=== PATIENT | male | born 1955 | race Hispanic/Latino ===

== ENCOUNTER 2016-09-21 16:42 | Observation (INO) | payer BC ==
--- NOTE | 2016-09-21 17:09 | ED PDOC ---
Arrival/HPI - General Chief Complaint: Chest Pain Time Seen by Provider: 09/21/16 16:43 - History of Present Illness Narrative History of Present Illness (Text): 09/21/16 17:07 61 yo male, hx of htn, cabg, cad, presents from home with cp. as per pt, started having cp at work, described as midsternal tightness. as per pt, went home, and "took a shower". pt noted pain to be worsening. ems arrived, found pt in svt, given adenosine, with resolution. at this time, pt cp and symptom free. no fevers, n/v/d, leg swelling, sob, diaphoresis. 09/21/16 17:14 Past Medical History - Provider Review Nursing Documentation Reviewed: Yes - Infectious Disease Hx of Infectious Diseases: None - Tetanus Immunization Tetanus Immunization: Unknown - Cardiac Hx Cardiac Disorders: (mi 2001 1 stent) Hx Angina: Yes Hx Hypertension: Yes Other/Comment: cardiac stent feb 2014, triple bypass 1995 - Pulmonary Hx Respiratory Disorders: No - Neurological Hx Transient Ischemic Attacks (TIA): Yes (December 2013) - HEENT Hx HEENT Disorder: Yes (deviated septum) - Renal Hx Renal Disorder: No - Endocrine/Metabolic Hx Endocrine Disorders: No - Hematological/Oncological Hx Blood Disorders: No - Integumentary Hx Dermatological Disorder: No - Musculoskeletal/Rheumatological Hx Falls: No - Gastrointestinal Hx Gastrointestinal Disorders: No - Genitourinary/Gynecological Hx Genitourinary Disorders: No - Psychiatric Hx Emotional Abuse: No Hx Physical Abuse: No Hx Substance Use: No - Surgical History Hx Cardiac Catheterization: Yes Hx Coronary Stent: Yes (February 2014 x1) Hx Open Heart Surgery: Yes - Anesthesia Hx Anesthesia Reactions: No Hx Malignant Hyperthermia: No - Suicidal Assessment Feels Threatened In Home Enviroment: No Family/Social History - Physician Review Nursing Documentation Reviewed: Yes Family/Social History: Unknown Family HX Smoking Status: Former Smoker Hx Alcohol Use: No Amount per day: 0 Hx Substance Use: No Hx Substance Use Treatment: No Allergies/Home Meds Allergies/Adverse Reactions: Allergies ciprofloxacin Allergy (Verified 09/21/16 16:45) RASH Home Medications: Home Meds Medication Instructions Recorded Confirmed Atorvastatin [Lipitor] 40 mg PO DAILY 12/31/11 09/21/16 Clopidogrel [Plavix] 75 mg PO DAILY 09/21/16 09/21/16 Lisinopril [Zestril] 0 mg PO DAILY 09/21/16 09/21/16 Metoprolol Tartrate [Lopressor] 0 mg PO DAILY 09/21/16 09/21/16 Review of Systems - Review of Systems Constitutional: Normal Eyes: Normal ENT: Normal Respiratory: Normal Cardiovascular: Chest Pain Gastrointestinal: Normal Genitourinary Male: Normal Musculoskeletal: Normal Skin: Normal Neurological: Normal Endocrine: Normal Hemo/Lymphatic: Normal Psychiatric: Normal Physical Exam Vital Signs Temp Pulse Resp BP Pulse Ox 09/21/16 20:30 58 L 18 153/94 H 95 09/21/16 18:35 62 18 149/89 97 09/21/16 16:43 98.6 F 88 18 144/82 96 Temperature: Afebrile Blood Pressure: Normal Pulse: Regular Respiratory Rate: Normal Appearance: Positive for: Well-Appearing, Non-Toxic, Comfortable Pain Distress: None Mental Status: Positive for: Alert and Oriented X 3 - Systems Exam Head: Present: Atraumatic, Normocephalic Pupils: Present: PERRL Extroacular Muscles: Present: EOMI Conjunctiva: Present: Normal Mouth: Present: Moist Mucous Membranes Neck: Present: Normal Range of Motion Respiratory/Chest: Present: Clear to Auscultation, Good Air Exchange. No: Respiratory Distress, Accessory Muscle Use Cardiovascular: Present: Regular Rate and Rhythm, Normal S1, S2. No: Murmurs Abdomen: Present: Normal Bowel Sounds. No: Tenderness, Distention, Peritoneal Signs Back: Present: Normal Inspection Upper Extremity: Present: Normal Inspection. No: Cyanosis, Edema Lower Extremity: Present: Normal Inspection. No: Edema Neurological: Present: GCS=15, CN II-XII Intact, Speech Normal Skin: Present: Warm, Dry, Normal Color. No: Rashes Psychiatric: Present: Alert, Oriented x 3, Normal Insight, Normal Concentration Medical Decision Making ED Course and Treatment: 09/21/16 17:14 cp/svt - r/o acs, metabolic abnormality. labs imaging, ekg - nsr 89 lateral t wave changes, no interval changes 09/21/16 18:30 pt remains pain free in er. remote h/o of neg stress 2014 as per pt, no repeat svt in er. discussed with dr orellana, accepts for obs. - Lab Interpretations Lab Results: 09/21/16 17:05 09/21/16 17:05 Lab Results 09/21/16 17:05: Sodium 140, Potassium 3.8, Chloride 108 H, Carbon Dioxide 21, Anion Gap 15, BUN 24 H, Creatinine 0.9, Est GFR ( Amer) > 60, Est GFR ( Non-Af Amer) > 60, Random Glucose 142 H, Calcium 9.6, Magnesium 2.0, Total Bilirubin 0.6, AST 86 H, ALT 83 H, Alkaline Phosphatase 82, Lactate Dehydrogenase 503, Total Creatine Kinase 133, Troponin I 0.03 D, Total Protein 7.4, Albumin 3.9, Globulin 3.5, Albumin/Globulin Ratio 1.1 09/21/16 17:05: PT 11.2, INR 1.04, APTT 27.5 09/21/16 17:05: WBC 9.9 D, RBC 4.35, Hgb 14.0, Hct 40.6 L, MCV 93.3, MCH 32.2, MCHC 34.5, RDW 13.7, Plt Count 257, MPV 10.0, Gran % 78.5 H, Lymph % (Auto) 16.3 L, [place] % (Auto) 4.8, Eos % (Auto) 0.1 L, Baso % (Auto) 0.3, Gran # 7.80 H , Lymph # 1.6, [place] # 0.5, Eos # 0.0, Baso # 0.03 - RAD Interpretation Radiology Orders: 09/21/16 17:06 CHEST PORTABLE [RAD] Stat - Medication Orders Current Medication Orders: Discontinued Medications Aspirin (Aspirin) 325 mg PO STAT STA Stop: 09/21/16 17:10 Last Admin: 09/21/16 17:21 Dose: 325 mg Atorvastatin Calcium (Lipitor) 40 mg PO [facility] Last Admin: 09/22/16 21:58 Dose: 40 mg Clopidogrel Bisulfate (Plavix) 75 mg PO DAILY [facility] Last Admin: 09/23/16 09:50 Dose: 75 mg Diphenhydramine HCl (Benadryl) 25 mg PO ONCE ONE Stop: 09/21/16 23:19 Last Admin: 09/21/16 23:26 Dose: 25 mg Lisinopril (Zestril) 10 mg PO BID [facility] Last Admin: 09/23/16 09:49 Dose: 10 mg Lisinopril (Zestril) 10 mg PO STAT STA Stop: 09/21/16 22:47 Last Admin: 09/21/16 22:50 Dose: 10 mg Metoprolol Tartrate (Lopressor) 12.5 mg PO BRKDIN [facility] Last Admin: 09/23/16 08:19 Dose: Not Given Non-Admin Reason: BP Parameters Not Met Disposition/Present on Arrival - Present on Arrival Any Indicators Present on Arrival: No History of DVT/PE: No History of Uncontrolled Diabetes: No Urinary Catheter: No History of Decub. Ulcer: No History Surgical Site Infection Following: None - Disposition Have Diagnosis and Disposition been Completed?: Yes Diagnosis: Chest pain, SVT (supraventricular tachycardia) Disposition: HOSPITALIZED Disposition Time: 07:00 Condition: FAIR
[2016-09-21 17:10] LABS: ADD MANUAL DIFF? NO
[2016-09-21 17:19] LABS: BASO # 0.03 K/mm3 (0.0-2.0); BASO % 0.3 % (0.0-3.0); EOS % 0.1 % (1.5-5.0); GRAN % 78.5 % (50.0-68.0); HEMATOCRIT 40.6 % (42.0-52.0); LYMPH # 1.6 (1.2-3.4); LYMPH % 16.3 % (22.0-35.0); MEAN CELL VOLUME 93.3 fL (80.0-105.0); MEAN CORPUSCULAR HEMOGLOBIN 32.2 pg (25.0-35.0); MEAN CORPUSCULAR HGB CONC 34.5 g/dl (31.0-37.0); MONO # 0.5 (0.1-0.6); MONO % 4.8 % (1.0-6.0); PLATELET COUNT 257 10^3/uL (120.0-450.0); RED CELL DISTRIBUTION WIDTH 13.7 % (11.5-14.5); WHITE BLOOD COUNT 9.9 10^3/ul (4.5-11.0)
[2016-09-21 17:26] LABS: ALB/GLOB RATIO 1.1 (1.1-1.8); ALKALINE PHOSPHATASE 82 U/L (38-133); ALT/SGPT 83 U/L (7-56); AST/SGOT 86 U/L (15-59); BILIRUBIN,TOTAL 0.6 mg/dL (0.2-1.3); BLOOD UREA NITROGEN 24 mg/dL (7-21); CALCIUM 9.6 mg/dL (8.4-10.5); CARBON DIOXIDE 21 mmol/L (21-33); CHLORIDE 108 mmol/L (98-107); GFR AFRICAN-AMERICAN > 60; GLUCOSE,RANDOM 142 mg/dL (70-110); INR 1.04 (0.93-1.08); PARTIAL THROMBOPLASTIN TIME 27.5 Seconds (23.7-30.8); POTASSIUM 3.8 mmol/L (3.6-5.0); SODIUM 140 mmol/L (132-148); TOTAL PROTEIN 7.4 g/dL (5.8-8.3)
[2016-09-21 17:37] LABS: TROPONIN I 0.03 ng/mL
[2016-09-22 03:01] VITALS: BMI 86700.6
[2016-09-22 04:18] VITALS: O2SAT 98
--- NOTE | 2016-09-22 06:30 | CP.PCM.PN ---
Subjective - Date & Time of Evaluation Date of Evaluation: 09/22/16 Time of Evaluation: 04:00 - Subjective Subjective: called by nurse pt. has sinus bradycardia,at the rate of 40. pt is admitted with cp and has receieved metoprolol 50 mg at 7:30 pm. pt denies complaints.is sleeping comfortably . Objective - Vital Signs/Intake and Output Vital Signs (last 24 hours): Temp Pulse Resp BP Pulse Ox 97.7 F 48 L 19 106/56 L 98 09/22/16 05:49 09/22/16 05:49 09/22/16 05:49 09/22/16 05:49 09/22/16 00:00 Intake and Output: 09/21/16 09/22/16 18:59 06:59 Intake Total 0 Output Total 0 Balance 0 - Medications Medications: Current Medications Atorvastatin Calcium (Lipitor) 40 mg PO HS [facility] Last Admin: 09/21/16 22:50 Dose: 40 mg Clopidogrel Bisulfate (Plavix) 75 mg PO DAILY [facility] Lisinopril (Zestril) 10 mg PO BID [facility] Metoprolol Tartrate (Lopressor) 50 mg PO BRKDIN AIXA - Labs Labs: PT 11.2 Seconds (9.9-11.8) 09/21/16 17:05 INR 1.04 (0.93-1.08) 09/21/16 17:05 APTT 27.5 Seconds (23.7-30.8) 09/21/16 17:05 - Constitutional Appears: No Acute Distress - Head Exam Head Exam: NORMOCEPHALIC - Eye Exam Pupil Exam: PERRL - ENT Exam ENT Exam: Mucous Membranes Moist - Neck Exam Neck Exam: Full ROM - Respiratory Exam Respiratory Exam: Clear to Ausculation Bilateral - Cardiovascular Exam Cardiovascular Exam: RRR, +S1, +S2 - Rectal Exam Rectal Exam: Deferred - Extremities Exam Extremities Exam: Full ROM - Neurological Exam Neurological Exam: CN II-XII Intact, Oriented x3 - Psychiatric Exam Psychiatric exam: Normal Affect Assessment and Plan - Assessment and Plan (Free Text) Assessment: sinus bradycardia./medication effect. Plan: will hold am dose of metoprolol. will call dr zamarripa ? decreasing the dose of metoprolol. pt has secnd set of troponone pending.
--- NOTE | 2016-09-22 11:01 | HP ---
CHIEF COMPLAINT AND HISTORY OF PRESENT ILLNESS: This is a 61-year-old male who is coming into the [facility] with complaints of chest pain. The patient says that he was having chest pain at home. He sa ys he went to work, was having chest pain. It was midsternal. He felt that it was getting worse, so the patient wanted to go to his job service consultant, Dr. Grey. EMS was called to take the patient to the ER. On arrival, the patient was in SVT and adenosine was given and the patient had improvement of h is rapid heartbeat. He said he did not feel the rapid heartbeat. He has no complaints of any headac hes or dizziness this morning. No chest pain, no shortness of breath, no nausea, no vomiting, no dys uria or frequency, no nocturia. REVIEW OF SYSTEMS: All other review of systems are within normal limits except as mentioned. PAST MEDICAL HISTORY: TIA, BPH, dyslipidemia, coronary artery disease, hypertension. PAST SURGICAL HISTORY: CABG. SOCIAL HISTORY: He does not smoke or drink. 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 He has no children. 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 FAMILY HISTORY: Noncontributory. PHYSICAL EXAMINATION: VITAL SIGNS: Temperature is 97.7, pulse of 48, blood pressure is 106/56, respirations are 19, O2 sa turation 98%. GENERAL: Patient lying in bed, flat, and in no apparent distress. HEAD AND NECK EXAM: Atraumatic, normocephalic. Conjunctivae are pink. Throat clear and mouth with moist mucosa. Oropharynx benign. EYES: Extraocular movements are intact. PERRLA. NECK: Supple. No JVD, thyromegaly, or adenopathy. No bruits. HEART: S1 and S2 regular rate and rhythm. No murmurs, rubs, or gallops. LUNGS: Clear to auscultation bilaterally. No wheezing rales or rhonchi appreciated. No retraction s on exam. ABDOMEN: Soft, nontender, nondistended. Bowel sounds are positive in all quadrants. No rebound. No hepatosplenomegaly. EXTREMITIES: No cyanosis, clubbing, or edema. NEURO: No facial asymmetry, tongue is midline, no uvula deviation. Power is 5/5 in upper extremity and 5/5 in lower extremity. Sensation is normal in upper extremity and lower extremity. PSYCH: Awake, alert, oriented x3. No anxiety or depression symptoms. Good insight. Normal affec t. : No CVA tenderness VASCULAR: 2+ pulses in carotid and pedal pulses. SKIN: No erythema or abnormal nodules noted. SPINE: Normal curvature. LYMPHADENOPATHY: No anterior cervical or posterior cervical adenopathy. No inguinal adenopathy. LABORATORY DATA: Have been reviewed. White count of 9.6. He has a chemistry that shows a creatinin e of 0.9. Chest x-ray shows no infiltrates. ASSESSMENT: 1. Supraventricular tachycardia. 2. Coronary artery disease. 3. Coronary artery bypass graft. 4. Benign prostatic hypertrophy. 5. Dyslipidemia. 6. Benign prostatic hypertrophy. 7. Hypertension. 8. Bradycardia, asymptomatic. PLAN: The patient is currently comfortable. The patient is on Lipitor for dyslipidemia. He is mercedes g to continue his Plavix. He is on Zestril for his hypertension. The patient is on beta blockers. Will discontinue for now because of the patient's bradycardia. I have asked Dr. Grey to evaluate e patient. The patient has a troponin that has been ordered and is pending. Davidson Morrison MD cc: [id number] TT: 09/22/2016 11:00:40 derek
--- NOTE | 2016-09-22 14:03 | CARD ---
APPROVED REPORT EKG Measurement Heart [id number] SD [id number] [id number] <Conclusion> Normal sinus rhythm ST & T wave abnormality, consider lateral ischemia Abnormal ECG
--- NOTE | 2016-09-22 15:24 | CON ---
DATE: 09/22/2016 REQUESTING PHYSICIAN: Dr. Morrison. REASON FOR CONSULTATION: Tachycardia, chest pain. HISTORY OF PRESENT ILLNESS: This is a 61-year-old man well known to us with a history of coronary ar melanie disease, status post prior bypass surgery, who presented to the office yesterday with complaints of dyspnea and chest pain. He was noted be tachycardic and ambulance was called. Upon arrival in E mergency Room, he was in SVT with heart rate of over 160. He was treated with adenosine and subseque ntly converted to sinus rhythm. He had some chest pain prior to presenting. He states that he has b een fairly active recently with no exertional chest pain or excessive dyspnea. He claims compliance with his medications. He has had no prior episodes of SVT. PAST MEDICAL HISTORY: Notable for the problems mentioned above. He underwent coronary bypass surger y several years ago. He has a history of hypertension, hyperlipidemia. He also had a TIA several ye ars ago. He has a history of BPH as well. ALLERGIES: HE HAS HAD A REACTION TO CIPROFLOXACIN IN THE PAST. MEDICATIONS: At home included Lipitor 40 mg daily, metoprolol 12.5 mg b.i.d., Plavix 75 mg daily as well as Zestril 5 mg daily. SOCIAL HISTORY: He does not smoke. He drinks occasionally. He denies excessive alcohol use recentl y. 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 REVIEW OF SYSTEMS: Ten point review of systems is otherwise unremarkable. PHYSICAL EXAMINATION: GENERAL: He is a healthy appearing middle-aged man. VITAL SIGNS: His blood pressure is 134/80 with a pulse of 60 and sinus, respirations are 14, he is a febrile. HEENT: Normocephalic, atraumatic. NECK: Supple, no JVD noted. CHEST: Few scattered rhonchi heard. HEART: PMI in normal position. A systolic murmur is present in left sternal border. ABDOMEN: Soft, nontender, normoactive bowel sounds. EXTREMITIES: No clubbing, cyanosis or edema. SKIN: Warm and dry. PSYCHIATRIC: Normal mood and affect. NEUROLOGIC: Alert and oriented x 3. No gross motor or sensory deficits appreciable. DIAGNOSTIC DATA: Initial electrocardiogram strips were unavailable for review. Follow up electrocar diogram reveals sinus rhythm, nonspecific ST-T abnormalities. Chest x-ray reveals borderline cardiac silhouette enlargement with clear lung ac and post-sternotomy changes. White count is 9.9, hemo globin and hematocrit of 14 and 40.6 with a platelet count of 256,000. PT, PTT were normal. Potassi um 3.8, BUN and creatinine are 24 and 0.9. AST, ALT 86 and 83 respectively. Initial troponin was 0. 03, repeat is 0.13. IMPRESSION: 1. Paroxysmal supraventricular tachycardia successfully converted with adenosine in the Emergency Ro om. 2. Elevated troponin, possibly secondary to tachycardia; however, given coronary disease and recent chest pain further evaluation is warranted. 3. Coronary artery disease, status post prior bypass surgery. 4. Mildly elevated transaminases, etiology uncertain. 5. Rest of problems as noted. RECOMMENDATIONS: Continued telemetry observation for 24 hours is advised. Despite his resting deena cardia, low dose beta heydi therapy should continue. Follow up cardiac enzymes are planned. Old r ecords were reviewed. A repeat stress test may be necessary in the near future. If he has no recurr ent SVT or other issues, discharge home in 24 hours would be reasonable. Thank you for this consultation. I am happy to continue to follow him through his hospital course. Babak Flowers MD cc: [id number] TT: 09/22/2016 15:23:16 Confirmation # [id number] Dictation # [id number] lisa
--- NOTE | 2016-09-22 15:45 | RAD ---
HISTORY: cp COMPARISON: Comparison chest 01/10/2015 study slightly limited due to patient rotation FINDINGS: LUNGS: Suspect minor bibasilar atelectasis. PLEURA: No significant pleural effusion identified, no pneumothorax apparent. CARDIOVASCULAR: Sternotomy wires again noted. Heart size is borderline/ mildly enlarged. OSSEOUS STRUCTURES: No significant abnormalities. VISUALIZED UPPER ABDOMEN: Normal. OTHER FINDINGS: None. IMPRESSION: Slightly limited study. Mild bibasilar atelectasis.
--- NOTE | 2016-09-23 08:41 | PN ---
DATE: 09/23/2016 SUBJECTIVE: The patient is seen lying in bed on telemetry. He feels comfortable at the present time. He has had no recurrent tachycardia. He denies any recurrent chest pain. CURRENT MEDICATIONS: Include Lipitor 40 mg daily, metoprolol 12.5 mg b.i.d., Plavix 75 mg daily, and Zestril 10 mg b.i.d. OBJECTIVE: GENERAL: He is a middle-aged man who appears comfortable at rest. VITAL SIGNS: Blood pressure is 100/56 with a pulse of 50 in sinus. Respirations are 16. He is afebrile. HEENT: No JVD. CHEST: A few scattered rhonchi. HEART: PMI in normal position. No pathologic murmurs or gallops noted. ABDOMEN: Soft, nontender, normoactive bowel sounds. EXTREMITIES: No edema. DIAGNOSTIC DATA: Morning blood work pending. Peak troponin was 0.13. IMPRESSION: 1. Recent paroxysmal supraventricular tachycardia successfully terminated with adenosine use in the Emergency Room. 2. Coronary artery disease, status post remote bypass surgery and percutaneous coronary intervention. 3. Recent chest pain, possibly due to supraventricular tachycardia. 4. Borderline troponin elevation, likely due to supraventricular tachycardia, but given known coronary artery disease, followup stress test would be advised if not performed recently. RECOMMENDATIONS: From a cardiac standpoint, he appears stable for discharge home today. Low-dose beta-heydi therapy will be continued with Toprol XL 25 mg daily. Outpatient followup early next week will be planned. Continued risk factor control was advised. Maneuvers to attempt termination of SVT were discussed with him. If he has recurrent episodes, he was instructed to return to the Emergency Room. Ablation therapy might be necessary, as he is limited in terms of drug therapy due to his relative bradycardia and transient low blood pressure readings. Continued risk-factor control was advised. Outpatient followup was arranged. Babak Flowers MD cc: [id number] TT: 09/23/2016 08:40:20 Confirmation # [id number] Dictation # [id number] jn JUDI
[2016-09-23 13:02] VITALS: BP 154/89; PULSE 47; RESP 18; TEMP 98.2
--- NOTE | 2016-09-23 20:10 | DS ---
The patient has no complaints of any chest pain or shortness of breath. No headaches or dizziness. He was initially admitted to the hospital because he was having SVT. The patient was seen by Dr. Mee bates and was cleared to be discharged home. He does have a history of coronary artery disease and C ABG. The patient had 3 troponins, the second one being elevated at 0.13 and one this morning is 0.[address] Flowers is aware and the patient is going to be discharged home to follow up as an outpatient . PHYSICAL EXAMINATION: VITAL SIGNS: Temperature is 98.2, pulse of 47, blood pressure is 154/89, respiration is 18. GENERAL: The patient comfortable, in no acute distress. HEENT: Anicteric sclerae. Moist mucosa. NECK: No JVD or adenopathy. CARDIAC: S1/S2. No murmurs. No rubs. Regular. RESPIRATORY: Clear to auscultation bilaterally. No wheezes, rales, or rhonchi. Good air entry. ABDOMEN: Bowel sounds are positive, soft, nontender, and nondistended. EXTREMITIES: No edema. Has 1+ pulses. ASSESSMENT: 1. Supraventricular tachycardia, resolved. 2. Coronary artery disease. 3. Coronary artery bypass graft. 4. Benign prostatic hypertrophy. 5. Dyslipidemia. 6. Hypertension. 7. Bradycardia, asymptomatic. PLAN: The patient was advised to take 12.5 mg of metoprolol at home. The patient is on Lipitor for dyslipidemia. This will be continued. He is receiving Zestril for his hypertension. He is going to be discharged home to follow up as an outpatient. CONDITION: Stable. ACTIVITIES: Increase as tolerated. Davidson Morrison MD cc: [id number] TT: 09/23/2016 20:09:35 sn
== END 2016-09-23 14:43 | disposition home or self-care (01) ==
LOC: ED 16:42 → ERH 18:29 → 2RNO 21:46
PROVIDERS: ADMIT Internal Medicine Nephrology; ATTEND Internal Medicine Nephrology
DX: I47.1 Supraventricular tachycardia (principal); I25.10 Atherosclerotic heart disease of native coronary artery without angina pectoris; N40.0 Benign prostatic hyperplasia without lower urinary tract symptoms; E78.5 Hyperlipidemia, unspecified; I10 Essential (primary) hypertension; R00.1 Bradycardia, unspecified; R74.0 Nonspecific elevation of levels of transaminase and lactic acid dehydrogenase [LDH]; Z95.1 Presence of aortocoronary bypass graft; Z86.73 Personal history of transient ischemic attack (TIA), and cerebral infarction without residual deficits
CPT/HCPCS: 36415; 71010; 80053; 82550; 82948; 83615; 83735; 84484; 85025; 85610; 85730; 93005; 99285; G0378

== ENCOUNTER 2016-10-07 13:07 | Inpatient (IN) | payer BC ==
[2016-10-07 13:23] VITALS: BMI 31.4
--- NOTE | 2016-10-07 13:26 | ED PDOC ---
Arrival/HPI - General Chief Complaint: Chest Pain Time Seen by Provider: 10/07/16 13:11 Historian: Patient - Critical Care Critical Care Minutes: 45 minutes Narrative Critical Care (Text): Required my immediate attention due to acuity of condition, required bedside presence for constant monitoring, drug administration, and consultations. - History of Present Illness Narrative History of Present Illness (Text): 10/07/16 13:23 61 year old male whose past medical history includes MO with stents, CABG, CAD, and hypertension, presents to the emergency department with chest pain, palpitations, and shortness of breath 20 minutes prior to arrival after having an argument with his landlord this morning. Patient states he feels woozy. He reports he was seen in the ER recently with similar symptoms. He states he had a stress test with Dr. Grey five days ago. Patient reports he had one drink earlier today and then just prior to the episode, had an altercation with his landlord. PMD: Dr. Jason Time/Duration: Prior to Arrival Symptom Onset: Sudden Symptom Course: Unchanged Modifying Factors (Text): None Past Medical History - Provider Review Nursing Documentation Reviewed: Yes - Infectious Disease Hx of Infectious Diseases: None - Tetanus Immunization Tetanus Immunization: Unknown - Cardiac Hx Cardiac Disorders: (mi 2001 1 stent) Hx Angina: Yes Hx Hypertension: Yes Other/Comment: cardiac stent feb 2014, triple bypass 1995 - Pulmonary Hx Respiratory Disorders: No - Neurological Hx Transient Ischemic Attacks (TIA): Yes (December 2013) - HEENT Hx HEENT Disorder: Yes (deviated septum) - Renal Hx Renal Disorder: No - Endocrine/Metabolic Hx Endocrine Disorders: No - Hematological/Oncological Hx Blood Disorders: No - Integumentary Hx Dermatological Disorder: No - Musculoskeletal/Rheumatological Hx Falls: No - Gastrointestinal Hx Gastrointestinal Disorders: No - Genitourinary/Gynecological Hx Genitourinary Disorders: No - Psychiatric Hx Emotional Abuse: No Hx Physical Abuse: No Hx Substance Use: No - Surgical History Hx Cardiac Catheterization: Yes Hx Coronary Stent: Yes (February 2014 x1) Hx Open Heart Surgery: Yes - Anesthesia Hx Anesthesia Reactions: No Hx Malignant Hyperthermia: No - Suicidal Assessment Feels Threatened In Home Enviroment: No Family/Social History - Physician Review Nursing Documentation Reviewed: Yes Family/Social History: Unknown Family HX Smoking Status: Former Smoker Hx Alcohol Use: No Amount per day: 0 Hx Substance Use: No Hx Substance Use Treatment: No Allergies/Home Meds Allergies/Adverse Reactions: Allergies ciprofloxacin Allergy (Verified 09/21/16 16:45) RASH Home Medications: Home Meds Medication Instructions Recorded Confirmed Atorvastatin [Lipitor] 40 mg PO DAILY 12/31/11 10/07/16 Clopidogrel [Plavix] 75 mg PO DAILY 09/21/16 10/07/16 Lisinopril [Zestril] 0 mg PO DAILY 09/21/16 10/07/16 Metoprolol Tartrate [Lopressor] 0 mg PO DAILY 09/21/16 10/07/16 Review of Systems - Physician Review All systems were reviewed & negative as marked: Yes - Review of Systems Eyes: absent: Vision Changes Respiratory: SOB Cardiovascular: Chest Pain, Palpitations Gastrointestinal: absent: Vomiting Physical Exam - Physical Exam Narrative Physical Exam (Text): Constitutional: No acute distress. Head: Normocephalic. Atraumatic. Eyes: PERRL. ENT: Moist mucous membranes. Neck: Supple. Cardiovascular: Tachycardic. Chest: No tenderness. Respiratory: Clear to auscultation bilaterally. GI: Soft. Nontender. Nondistended. Back: No CVA tenderness. Musculoskeletal: No tenderness or swelling of extremities. Skin: No rash. Neurologic: Alert, no focal deficit. 10/07/16 13:26 Vital Signs Reviewed: Yes Vital Signs Temp Pulse Resp BP Pulse Ox 10/07/16 14:12 70 18 122/76 96 10/07/16 14:10 103 H 18 166/83 H 97 10/07/16 13:12 98.2 F 175 H 18 156/117 H 97 Temperature: Afebrile Blood Pressure: Hypertensive Pulse: Tachycardic Respiratory Rate: Normal Appearance: Positive for: Well-Appearing, Non-Toxic, Uncomfortable Pain Distress: None Mental Status: Positive for: Alert and Oriented X 3 Medical Decision Making ED Course and Treatment: Impression: 61 year old male whose past medical history includes MO with stents , CABG, CAD, and hypertension, presents to the emergency department with chest pain, palpitations, and shortness of breath 20 minutes prior to arrival after having an argument with his landlord this morning. Differential Diagnosis include but are not limited to: SVT Plan: -- Adenosine, Aspirin -- Labs -- Reassess and disposition Prior Visits: Notes and results from previous visits were reviewed. Patient last seen in ED on 09/21/16 for chest pain and admitted for SVT, chest pain. Progress Notes: EKG at 13:11 shows rate 175 BPM, nonspecific ST/T wave changes, narrow QRS. Interpreted by me. Adenosine 6mg administered with no effect, then 12 mg administered with successful conversion to NSR. EKG at 13:24 shows sinus rhythm 103 BPM, no ST elevations, normal axis. Interpreted by me. 10/07/16 13:38 Chest X-ray read by me shows no acute infiltrate, no change from previous. Positive sternotomy wires Dr. Walker accepts patient to her service. Dr. Grey consulted, states he will discuss need for cath with patient. - Lab Interpretations Lab Results: 10/07/16 12:10 10/07/16 12:10 Lab Results 10/07/16 12:10: Sodium 139, Potassium 4.4, Chloride 105, Carbon Dioxide 20 L, Anion Gap 18, BUN 24 H, Creatinine 0.9, Est GFR ( Amer) > 60, Est GFR ( Non-Af Amer) > 60, Random Glucose 182 H, Calcium 9.1, Total Bilirubin 0.6, AST 45, ALT 69 H, Alkaline Phosphatase 78, Total Creatine Kinase 63, Troponin I < 0.01 D, Total Protein 8.1, Albumin 4.3, Globulin 3.7, Albumin/Globulin Ratio 1.2 10/07/16 12:10: WBC 11.5 H, RBC 4.81, Hgb 15.4, Hct 44.8, MCV 93.1, MCH 32.0, MCHC 34.4, RDW 13.7, Plt Count 270, MPV 10.3, Gran % 67.7, Lymph % (Auto) 23.6, [place] % (Auto) 7.9 H, Eos % (Auto) 0.5 L, Baso % (Auto) 0.3, Gran # 7.81 H, Lymph # 2.7, [place] # 0.9 H, Eos # 0.1, Baso # 0.04 - RAD Interpretation Radiology Orders: 10/07/16 13:25 CHEST PORTABLE [RAD] Stat - EKG Interpretation Interpreted by ED Physician: Yes Type: 12 lead EKG - Medication Orders Current Medication Orders: Discontinued Medications Adenosine (Adenosine 6 Mg/2 Ml Inj) Confirm Administered Dose 6 mg .ROUTE .[employer] ONE Stop: 10/07/16 13:15 Last Admin: 10/07/16 13:50 Dose: Adenosine (Adenosine 6 Mg/2 Ml Inj) 6 mg IVP STAT STA Stop: 10/07/16 13:30 Last Admin: 10/07/16 13:14 Dose: 6 mg Adenosine (Adenosine 6 Mg/2 Ml Inj) 12 mg IVP STAT STA Stop: 10/07/16 13:30 Last Admin: 10/07/16 13:20 Dose: 12 mg Aspirin (Aspirin) 325 mg PO STAT STA Stop: 10/07/16 13:27 Last Admin: 10/07/16 13:47 Dose: 325 mg - Scribe Statement The provider has reviewed the documentation as recorded by the Temi Fontenot Provider Scribe Attestation: All medical record entries made by the Paddyibe were at my direction and personally dictated by me. I have reviewed the chart and agree that the record accurately reflects my personal performance of the history, physical exam, medical decision making, and the department course for this patient. I have also personally directed, reviewed, and agree with the discharge instructions and disposition. Disposition/Present on Arrival - Present on Arrival Any Indicators Present on Arrival: No History of DVT/PE: No History of Uncontrolled Diabetes: No Urinary Catheter: No History of Decub. Ulcer: No History Surgical Site Infection Following: None - Disposition Have Diagnosis and Disposition been Completed?: Yes Diagnosis: SVT (supraventricular tachycardia) Disposition: HOSPITALIZED Disposition Time: 14:06 Patient Plan: Telemetry Condition: GUARDED
[2016-10-07 13:31] LABS: ADD MANUAL DIFF? NO
[2016-10-07 13:38] LABS: BASO # 0.04 K/mm3 (0.0-2.0); BASO % 0.3 % (0.0-3.0); EOS # 0.1 (0.0-0.7); EOS % 0.5 % (1.5-5.0); GRAN # 7.81 (1.4-6.5); GRAN % 67.7 % (50.0-68.0); HEMATOCRIT 44.8 % (42.0-52.0); LYMPH # 2.7 (1.2-3.4); LYMPH % 23.6 % (22.0-35.0); MEAN CELL VOLUME 93.1 fL (80.0-105.0); MEAN CORPUSCULAR HGB CONC 34.4 g/dl (31.0-37.0); MEAN PLATELET VOLUME 10.3 fl (7.0-11.0); MONO # 0.9 (0.1-0.6); MONO % 7.9 % (1.0-6.0); PLATELET COUNT 270 10^3/uL (120.0-450.0); RED CELL DISTRIBUTION WIDTH 13.7 % (11.5-14.5); WHITE BLOOD COUNT 11.5 10^3/ul (4.5-11.0)
[2016-10-07 13:43] LABS: ALB/GLOB RATIO 1.2 (1.1-1.8); ALKALINE PHOSPHATASE 78 U/L (38-133); ALT/SGPT 69 U/L (7-56); AST/SGOT 45 U/L (15-59); BILIRUBIN,TOTAL 0.6 mg/dL (0.2-1.3); BLOOD UREA NITROGEN 24 mg/dL (7-21); CALCIUM 9.1 mg/dL (8.4-10.5); CARBON DIOXIDE 20 mmol/L (21-33); CHLORIDE 105 mmol/L (98-107); GFR AFRICAN-AMERICAN > 60; GLUCOSE,RANDOM 182 mg/dL (70-110); POTASSIUM 4.4 mmol/L (3.6-5.0); SODIUM 139 mmol/L (132-148); TOTAL PROTEIN 8.1 g/dL (5.8-8.3)
[2016-10-07 13:59] LABS: TROPONIN I < 0.01 ng/mL
--- NOTE | 2016-10-07 13:59 | RAD ---
HISTORY: svt COMPARISON: 01/10/2015 FINDINGS: LUNGS: No focal airspace opacity. PLEURA: No significant pleural effusion identified, no pneumothorax apparent. CARDIOVASCULAR: Stable cardiomediastinal silhouette. OSSEOUS STRUCTURES: The osseous structures demonstrate degenerative changes. VISUALIZED UPPER ABDOMEN: Upper abdomen is suboptimally evaluated. OTHER FINDINGS: Midline sternotomy wires and surgical clips along the left heart border noted. IMPRESSION: No focal airspace opacity.
--- NOTE | 2016-10-07 22:21 | CP.PCM.PN ---
Subjective - Date & Time of Evaluation Date of Evaluation: 10/07/16 Time of Evaluation: 22:21 - Subjective Subjective: Patient was examined because his troponin had bumped to 0.16 from 0.01 at 12PM. Earlier , patient has SVT, after receiving 18 mg of adenosine it was controlled. As per case monitor , since about 7 pm heart rate has been in 40's 50's. Patient has no complaints now. Denies chest pain, sob, nausea, sweating , palpitations. Medical record was reviewed. This 61 year old white male was admitted with chest pain, sob and palpitations/ SVT. Has PMH of HTN, dyslipidemia, CAD,CABG, SVT, BPH ,asymptomatic bradycardia, former smoker. Objective - Vital Signs/Intake and Output Vital Signs (last 24 hours): Temp Pulse Resp BP Pulse Ox 98.3 F 52 L 22 144/78 97 10/07/16 17:01 10/07/16 21:32 10/07/16 17:01 10/07/16 17:01 10/07/16 16:29 Intake and Output: 10/07/16 10/08/16 18:59 06:59 Intake Total 360 Output Total 1 Balance 359 - Medications Medications: Current Medications Alprazolam (Xanax) 0.5 mg PO TID PRN; Protocol PRN Reason: Anxiety Clopidogrel Bisulfate (Plavix) 75 mg PO DAILY AIXA Lisinopril (Zestril) 10 mg PO DAILY AIXA Metoprolol Tartrate (Lopressor) 25 mg PO DAILY AIXA - Constitutional Appears: Well, No Acute Distress - Head Exam Head Exam: ATRAUMATIC, NORMAL INSPECTION, NORMOCEPHALIC - Eye Exam Eye Exam: Normal appearance - ENT Exam ENT Exam: Normal External Ear Exam - Neck Exam Neck Exam: Normal Inspection - Respiratory Exam Respiratory Exam: NORMAL BREATHING PATTERN - Cardiovascular Exam Cardiovascular Exam: absent: JVD - GI/Abdominal Exam GI & Abdominal Exam: absent: Distended - Rectal Exam Rectal Exam: Deferred - Extremities Exam Extremities Exam: Normal Inspection - Back Exam Back Exam: NORMAL INSPECTION - Neurological Exam Neurological Exam: Alert, Oriented x3 - Psychiatric Exam Psychiatric exam: Normal Affect, Normal Mood - Skin Skin Exam: Normal Color Assessment and Plan - Assessment and Plan (Free Text) Assessment: A/P : Elevated troponin. NSTEMI. Sinus bradycardia. CAD. HTN. Hx CABG. Dyslipidemia. EKG------>Sinus bradycardia, 1 * heart block,no acute changes. Lovenox 100 mg SC Q12H, one dose stat. Patient has had plavix in morning , refused plavix initially, then agreed to take 3 more plavix. Will keep patient NPO. Discussed with . Discussed with as per whom patient is for cardiac catheterization in AM.
[2016-10-07] MEDS ORDERED: Enoxaparin 100 mg Syringe SC SCH (22:30)
[2016-10-07] MEDS ORDERED: Enoxaparin 120 mg Syringe SC SCH (22:30)
--- NOTE | 2016-10-07 23:33 | CP.PCM.HP ---
History of Present Illness - History of Present Illness History of Present Illness: Patient is a 61 year male admitted with SVT. He had a drink earlier in the day. He has history of CAD and recently discharged. he was given adenosine in ER with resolution of tachycardia. First set of troponin was negative. Second set is positive. He developed bradycardia. CBC showed leukocytosis. Hb/hct stable. Present on Admission - Present on Admission Any Indicators Present on Admission: No Review of Systems - Review of Systems Systems not reviewed;Unavailable: Unstable Vital Signs - Constitutional Constitutional: absent: As Per HPI, Anorexia, Chills, Daytime Sleepiness, Excessive Sweating, Fatigue, Fever, Frequent Falls, Headache, Increased Appetite , Lethargy, Malaise, Night Sweats, Snoring, Sleep Apnea, Weight Gain, Weight Loss, Weakness, Other - EENT Eyes: absent: As Per HPI, Blind Spots, Blurred Vision, Change in Vision, Decreased Night Vision, Diplopia, Discharge, Dry Eye, Exophthalmos, Floaters, Irritation, Itchy Eyes, Loss of Peripheral Vision, Pain, Photophobia, Requires Corrective Lenses, Sees Flashes, Spots in Vision, Tunnel Vision, Other Visual Disturbances, Loss of Vision, Other Nose/Mouth/Throat: absent: As Per HPI, Epistaxis, Nasal Congestion, Nasal Discharge, Nasal Obstruction, Nasal Trauma, Nose Pain, Post Nasal Drip, Sinus Pain, Sinus Pressure, Bleeding Gums, Change in Voice, Dental Pain, Dry Mouth, Dysphagia, Halitosis, Hoarsness, Lip Swelling, Mouth Lesions, Mouth Pain, Odynophagia, Sore Throat, Throat Swelling, Tongue Swelling, Facial Pain, Neck Pain, Neck Mass, Other - Cardiovascular Cardiovascular: Rapid Heart Rate - Respiratory Respiratory: absent: As Per HPI, Cough, Dyspnea, Hemoptysis, Dyspnea on Exertion , Wheezing, Snoring, Stridor, Pain on Inspiration, Chest Congestion, Excessive Mucous Production, Change in Mucous Color, Pain with Coughing, Other - Gastrointestinal Gastrointestinal: absent: As Per HPI, Abdominal Pain, Belching, Bloating, Change in Bowel Habits, Change in Stool Character, Coffee Ground Emesis, Constipation, Cramping, Diarrhea, Dyspepsia, Dysphagia, Early Satiety, Excessive Flatus, Fecal Incontinence, Heartburn, Hematemesis, Hematochezia, Loose Stools, Melena, Nausea, Odynophagia, Temesmus, Vomiting, Other - Genitourinary Genitourinary: absent: As Per HPI, Change in Urinary Stream, Difficulty Urinating, Dysuria, Flank Pain, Hematuria, Pyuria, Nocturia, Urinary Incontinence, Urinary Frequency, Urinary Hesitance, Urinary Urgency, Voiding Freq/Small Amts, Freq UTI, Hx Renal/Bladder Calculi, Hx /Renal Surgery, Bladder Distension, Other - Musculoskeletal Musculoskeletal: absent: As Per HPI, Abnormal Gait, Arthralgias, Atrophy, Back Pain, Deformity, Joint Swelling, Limited Range of Motion, Loss of Height, Muscle Cramps, Muscle Weakness, Myalgias, Neck Pain, Numbness, Radiating Pain into Limb, Stiffness, Tingling, Other - Integumentary Integumentary: absent: As Per HPI, Acne, Alopecia, Bleeding Lesions, Change in Hair, Change in Nails, Change in Pigmentation, Changing Lesions, Dry Skin, Erythema, Furuncle, Hirsutism, Lesions, New Lesions, Non-Healing Lesions, Photosensitivity, Pruritus, Rash, Skin Pain, Skin Ulcer, Sores, Striae, Swelling , Unusual Bruising, Wounds, Jaundice, Other - Neurological Neurological: absent: As Per HPI, Abnormal Gait, Abnormal Hearing, Abnormal Movements, Abnormal Speech, Behavioral Changes, Burning Sensations, Confusion, Convulsions, Disequilibrium, Dizziness, Numbness, Focal Weakness, Frequent Falls , Headaches, Lack of Coordination, Loss of Vision, Memory Loss, Paresthesias, Radicular Pain, Restless Legs, Sensory Deficit, Syncope, Tingling, Tremor, Vertigo, Weakness, Other Visual Disturbances, Other - Psychiatric Psychiatric: absent: As Per HPI, Abnormal Sleep Pattern, Anhedonia, Anxiety, Auditory Hallucinations, Behavioral Changes, Change in Appetite, Change in Libido, Confusion, Depression, Difficulty Concentrating, Hallucinations, Homicidal Ideation, Hopelessness, Irritability, Memory Loss, Mood Swings, Panic Attacks, Paranoia, Suicidal Ideation, Visual Hallucinations, Tactile Hallucinations, Other - Endocrine Endocrine: absent: As Per HPI, Change in Body Appearance, Change in Libido, Cold Intolorance, Deepening of Voice, Excessive Sweating, Fatigue, Flushing, Heat Intolorance, Increase in Ring/Shoe/Hat Size, Palpitations, Polydipsia, Polyphagia, Polyuria, Other - Hematologic/Lymphatic Hematologic: As Per HPI Past Patient History - Infectious Disease Hx of Infectious Diseases: None - Tetanus Immunizations Tetanus Immunization: Unknown - Past Medical History & Family History Past Medical History?: Yes Past Family History: Reviewed and not pertinent - Past Social History Smoking Status: Former Smoker - CARDIAC Hx Cardiac Disorders: (mi 2002 1 stent) Hx Angina: Yes Hx Hypertension: Yes Other/Comment: cardiac stent feb 2014, triple bypass 1995 - PULMONARY Hx Respiratory Disorders: No - NEUROLOGICAL Hx Transient Ischemic Attacks (TIA): Yes (December 2013) - HEENT Hx HEENT Problems: Yes (deviated septum) - RENAL Hx Chronic Kidney Disease: No - ENDOCRINE/METABOLIC Hx Endocrine Disorders: No - HEMATOLOGICAL/ONCOLOGICAL Hx Blood Disorders: No - INTEGUMENTARY Hx Dermatological Problems: No - MUSCULOSKELETAL/RHEUMATOLOGICAL Hx Falls: No - GASTROINTESTINAL Hx Gastrointestinal Disorders: No - GENITOURINARY/GYNECOLOGICAL Hx Genitourinary Disorders: No - PSYCHIATRIC Hx Emotional Abuse: No Hx Physical Abuse: No - SURGICAL HISTORY Hx Cardiac Catheterization: Yes Hx Coronary Stent: Yes (February 2014 x1) Hx Open Heart Surgery: Yes - ANESTHESIA Hx Anesthesia Reactions: No Hx Malignant Hyperthermia: No Meds Allergies/Adverse Reactions: Allergies Allergy/AdvReac Type Severity Reaction Status Date / Time ciprofloxacin Allergy RASH Verified 09/21/16 16:45 Physical Exam - Constitutional Appears: Well - Head Exam Head Exam: ATRAUMATIC, NORMAL INSPECTION, NORMOCEPHALIC - Eye Exam Eye Exam: Normal appearance Pupil Exam: NORMAL ACCOMODATION - ENT Exam ENT Exam: Mucous Membranes Moist, Normal Exam - Neck Exam Neck exam: Positive for: Normal Inspection - Respiratory Exam Respiratory Exam: Clear to Auscultation Bilateral, NORMAL BREATHING PATTERN - Cardiovascular Exam Cardiovascular Exam: Tachycardia, +S1, +S2 - GI/Abdominal Exam GI & Abdominal Exam: Normal Bowel Sounds, Soft - Extremities Exam Extremities exam: Positive for: normal inspection - Back Exam Back exam: NORMAL INSPECTION - Skin Skin Exam: Dry, Normal Color, Warm Results - Vital Signs Recent Vital Signs: Last Vital Signs Temp 98.3 F 10/07/16 17:01 Pulse 49 L 10/07/16 22:45 Resp 22 10/07/16 17:01 BP 140/82 10/07/16 22:45 Pulse Ox 97 10/07/16 16:29 - Labs Result Diagrams: 10/07/16 12:10 10/07/16 12:10 Labs: Laboratory Results - last 24 hr 10/07/16 21:00 Troponin I 0.16 H* D Assessment & Plan - Assessment and Plan (Free Text) Assessment: 1. SVT 2. NSTEMI 3. Leukocytosis 4. CAD 5. Hypertension 6. Anxiety Plan: 1. SVT, NSTEMI : given adenosine in ER. Second set of trop positive. Lovenox 60 mg BID. Cardiology consult Dr. Grey requested. 2. Leukocytois : no apparent infection. UA, urine culture to be send. 3. continue ASA, plavix, beta blockers. metoprolol 25 mg daily. lisinopril 10 mg daily. 4. anxiety : xanax prn . 5. Developed bradycardia , asymptomatic. continue tele monitoring. - Date & Time Date: 10/07/16 Time: 17:00
[2016-10-08 06:21] VITALS: O2SAT 98
--- NOTE | 2016-10-08 07:54 | PN ---
DATE: 10/08/2016 SUBJECTIVE: The patient has no complaints of any chest pain, no shortness of breath, no headaches, n o dizziness. PHYSICAL EXAMINATION: VITAL SIGNS: Temperature is 97.8, pulse of 56, blood pressure is 143/79, respirations 20, O2 saturat ion 98%. GENERAL: The patient comfortable, in no acute distress. HEENT: Anicteric sclerae. Moist mucosa. NECK: No JVD or adenopathy. CARDIAC: S1/S2. No murmurs. No rubs. Regular. RESPIRATORY: Clear to auscultation bilaterally. No wheezes, rales, or rhonchi. Good air entry. ABDOMEN: Bowel sounds are positive, soft, nontender, and nondistended. EXTREMITIES: No edema. Has 1+ pulses. ASSESSMENT: 1. Supraventricular tachycardia. 2. Hypertension. 3. Dyslipidemia. 4. Coronary artery disease with coronary artery bypass graft. 5. Benign prostatic hypertrophy. PLAN: The patient is currently comfortable. He is going to be getting a cardiac catheterization. T he patient is on aspirin. He is going to continue Lipitor for dyslipidemia. He is on metoprolol aaliyah ly. He is on Lovenox for anticoagulation. The patient is on Plavix. He is on lisinopril for hypert ension. He is on a heart healthy diet. The patient did have an elevated troponin at 0.16 last night and early this morning it was 0.12. Davidson Morrison MD cc: [id number] TT: 10/08/2016 07:53:55 Confirmation # [id number] Dictation # [id number] en
[2016-10-08 08:49] LABS: INR 1.03 (0.93-1.08)
--- NOTE | 2016-10-08 09:04 | CON ---
DATE: 10/08/2016 INDICATIONS: Palpitations, chest pain, rapid SVT. This is a 61-year-old man who had recent episode of SVT and was admitted to [facility]. Yesterday, after a brief argument with his landlord, he developed palpitations, rapid pulse and chest discomfort. He came to the Emergency Room. He was found to be in SVT at a rate of 175 beats per minute. He was given adenosine and reverted to sinus rhythm. His symptoms resolved. He was admitted to telemetry. While on telemetry, the second troponin is mildly elevated at 0.16. He has had no further symptoms. There is no orthopnea , PND, syncope, presyncope, lightheadedness, dizziness, vertigo, edema, claudication, fever, chills, cough, sputum production, hemoptysis, abdominal pain, nausea, vomiting, diarrhea, constipation, melena. PAST MEDICAL HISTORY: Notable for an episode of SVT about 2-3 weeks ago. He underwent a nuclear stress test last week. This was abnormal and we were talking about arranging an elective cardiac catheterization. He has known coronary bypass surgery, hypertension, hyperlipidemia, remote TIA and BPH. There is no history of rheumatic fever, myocardial infarction, congestive heart failure, diabetes, or gout. MEDICATIONS: At the time of admission include Lipitor, metoprolol, Plavix, lisinopril. ALLERGIES: HE NOTES AN ALLERGY TO CIPRO. SOCIAL HISTORY: He lives at home with his . He is ambulatory. He works for the [employer]. He does not currently smoke. He drinks occasionally. FAMILY HISTORY: Noncontributory. REVIEW OF SYSTEMS: Ten point otherwise unremarkable except as noted above. PHYSICAL EXAMINATION: GENERAL: He is a well-developed male, in no acute distress, sitting on his bed in telemetry. VITAL SIGNS: Unremarkable. He is in sinus rhythm to sinus bradycardia, afebrile, blood pressure 143/79, respirations 18-20, O2 sat 97%-99% on room air. HEENT: Reveals no neck vein distention, thyromegaly, or carotid bruits. Mucous membranes moist. Conjunctivae pink. NECK: Supple. CHEST: Lung ac clear. HEART: Revealed normal first and second heart sounds. ABDOMEN: Soft, bowel sounds present. No mass, organomegaly, tenderness, rebound, guarding, CVA tenderness or palpable abdominal aortic aneurysm. EXTREMITIES: Revealed no cyanosis, clubbing, or edema. NEUROLOGIC: He was awake, alert and oriented. SKIN: Warm and dry. No rash or cellulitis. PSYCHIATRIC: Normal as to mood and affect. LABORATORY AND IMAGING: The EKG demonstrated SVT at 175 beats per minute, deep ST depressions are noted, intraventricular conduction delay. Followup EKG demonstrates regular sinus rhythm, ST-T wave changes consistent with ischemia. A portable chest x-ray reveals no focal airspace opacity. CBC is unremarkable except a white count of 11,500. Electrolytes, BUN, creatinine unremarkable. Blood sugar 182. LFTs mildly abnormal with an ALT of 69, alk phos is 78. CK is 63. Three troponins are less than 0.01, 0.16 and 0.12. IMPRESSION: The patient is a 61-year-old man with coronary artery disease, coronary bypass surgery, recurrent supraventricular tachycardia precipitated by an argument with a mildly abnormal troponin and a recent abnormal nuclear stress test. At this time, I will arrange cardiac catheterization for him during this hospitalization, perhaps later in the day. In the meantime, we will keep him n.p.o. after clear liquid breakfast. I will hold the Lovenox. He is getting aspirin, Plavix, Lipitor, metoprolol, lisinopril, Xanax. I will review his old records. I will make additional recommendations based on his clinical course. He will also be considered for electrophysiology evaluation and possible ablation for supraventricular tachycardia at a future date. Tavo Grey MD cc: [id number] TT: 10/08/2016 09:03:40 Confirmation # [id number] Dictation # [id number] en MTDD
--- NOTE | 2016-10-08 11:41 | CARD ---
APPROVED REPORT EKG Measurement Heart [id number] <Conclusion> Wide QRS tachycardia Nonspecific intraventricular block STTW changes c/w ischemia New findings c/w ECG 09/21/16
--- NOTE | 2016-10-08 11:41 | CARD ---
APPROVED REPORT EKG Measurement Heart [id number] <Conclusion> Reversion to RSR STTW changes c/w ischemia
[2016-10-08] MEDS ORDERED: Lidocaine 2% Inj (20ml) ONE (15:28)
[2016-10-08] MEDS ORDERED: Iohexol 350mgl/ml 50 ML ONE (15:29)
[2016-10-08] MEDS ORDERED: Midazolam 2 MG/2 ML VIAL ONE ×2 (15:29→16:07)
[2016-10-08] MEDS ORDERED: Iodixanol 320 MG/ML 100 ML BOTTLE IV ONE (15:29)
[2016-10-08] MEDS ORDERED: Iodixanol 320 MG/ML 200 ML BOTTLE IV ONE (15:30)
[2016-10-08] MEDS ORDERED: Sodium Chloride 0.9% 1,000 ML IV SCH (16:45)
[2016-10-08 17:16] VITALS: RESP 18
--- NOTE | 2016-10-08 17:58 | CARDCATH ---
PROCEDURE DATE: 10/08/2016 PROCEDURES: 1. Selective left and right coronary angiography. 2. Left ventriculography. 3. Saphenous venography x 2. 4. Left internal mammary arteriography. 5. Right femoral arteriography. 6. Angio-Seal deployment. HISTORY: This is a 61-year-old male with known coronary artery disease, status post prior bypass chantale garcia and multivessel PCI, admitted with an episode of SVT. He had chest pain during the episode and had mild troponin elevation. He had a recent stress test performed as an outpatient, which was abnor mal. Cardiac catheterization was recommended. INDICATION: Known coronary artery disease and recent chest pain, abnormal stress test. FINDINGS: HEMODYNAMICS: The aortic pressure was 130/70 with left ventricular pressure of 130/18. CORONARY ANATOMY: 1. The left mainstem had a long 95% stenosis. The left circumflex artery was occluded proximally. The LAD showed evidence of some competitive flow distally. A small diagonal branch had mild diffuse disease. 2. The right coronary artery was occluded proximally in the region of the previously placed stents. 3. The saphenous vein graft to the RCA and PDA was somewhat patulous but patent with good distal run off. 4. Saphenous vein graft to the first obtuse marginal branch had a patent stent in its proximal segme nt with evidence of 30% in-stent restenosis. The [place] obtuse marginal branch had no significant di sease. 5. Left internal mammary to the LAD was widely patent. One large proximal branch of the internal jose zaria artery appeared not to have been ligated. The VALDERRAMA filled the distal LAD with evidence of mild diffuse disease in a [place] vessel. LEFT VENTRICULOGRAPHY: Left ventriculogram was performed with hand injection only in the ZHENG positio n. This revealed what appeared to be normal wall motion with an ejection fraction of 60%. There was no aortic valve gradient noted on catheter pullback. Mitral regurgitation was not assessed. RIGHT FEMORAL ARTERIOGRAPHY: Right femoral arteriogram was performed, revealing evidence of mild dif fuse atherosclerotic disease and mild calcification. The puncture site appeared to be at appropriate level and this was closed with deployment of an Angio-Seal device. CONCLUSION: 1. Severe 3-vessel coronary artery disease and left main disease. 2. Patent RCA bypass graft. 3. Patent saphenous vein graft to the obtuse marginal with mild in-stent restenosis. 4. Patent VALDERRAMA to the LAD with good distal runoff. 5. Normal LV function. RECOMMENDATIONS: At this time, continued medical therapy appears most appropriate for his coronary d isease. He will be referred for possible electrophysiology evaluation and SVT ablation, given his re current episodes and difficulty to control with medication. Continued risk factor control was advise d. Babak Flowers MD cc: [id number] TT: 10/08/2016 17:56:43 ln
[2016-10-08 21:23] VITALS: BP 158/78; PULSE 52; TEMP 98.8
--- NOTE | 2016-10-13 07:28 | CARD ---
APPROVED REPORT EKG Measurement Heart [id number] [id number] <Conclusion> Marked sinus bradycardia with 1st degree AV block ST & T wave abnormality, consider lateral ischemia Abnormal ECG
--- NOTE | 2016-10-19 14:00 | DS ---
This is a 61-year-old male who is coming into the hospital and had an episode of SVT. He had a cardi ac catheterization and the patient was discharged home. Please see the cardiac catheterization repor t by Dr. Flowers on 10/08/2016. Please see the discharge note on 10/08/2016. Davidson Morrison MD cc: [id number] TT: 10/19/2016 14:00:08 mn
== END 2016-10-08 21:46 | disposition home or self-care (01) | DRG 287 ==
LOC: ED 13:07 → ERH 14:20 → OBSVTOIN 14:20 → ERH 15:04 → 2RSO 16:48
PROVIDERS: ADMIT Internal Medicine Medical Oncology; ATTEND Internal Medicine Nephrology
PROC: 4A023N7 Measurement of Cardiac Sampling and Pressure, Left Heart, Percutaneous Approach (ICD-10-PCS; principal; 2016-10-08)
PROC: B2111ZZ Fluoroscopy of Multiple Coronary Arteries using Low Osmolar Contrast (ICD-10-PCS; 2016-10-08)
PROC: B2151ZZ Fluoroscopy of Left Heart using Low Osmolar Contrast (ICD-10-PCS; 2016-10-08)
PROC: B2181ZZ Fluoroscopy of Left Internal Mammary Bypass Graft using Low Osmolar Contrast (ICD-10-PCS; 2016-10-08)
PROC: B41F1ZZ Fluoroscopy of Right Lower Extremity Arteries using Low Osmolar Contrast (ICD-10-PCS; 2016-10-08)
DX: I47.1 Supraventricular tachycardia (principal); I25.10 Atherosclerotic heart disease of native coronary artery without angina pectoris; I10 Essential (primary) hypertension; I70.201 Unspecified atherosclerosis of native arteries of extremities, right leg; R00.1 Bradycardia, unspecified; E78.5 Hyperlipidemia, unspecified; N40.0 Benign prostatic hyperplasia without lower urinary tract symptoms; F41.9 Anxiety disorder, unspecified; D72.829 Elevated white blood cell count, unspecified; I25.2 Old myocardial infarction; Z86.73 Personal history of transient ischemic attack (TIA), and cerebral infarction without residual deficits; Z95.1 Presence of aortocoronary bypass graft; Z95.5 Presence of coronary angioplasty implant and graft; Z79.02 Long term (current) use of antithrombotics/antiplatelets; Z87.891 Personal history of nicotine dependence

== ENCOUNTER 2017-09-15 19:30 | Observation (INO) | payer BC ==
[2017-09-15 19:38] VITALS: BMI 31.8
[2017-09-15] MEDS ORDERED: Aspirin 325 mg EC Tablets PO ONE (19:51)
[2017-09-15 19:56] LABS: HEMOGLOBIN 15.4 g/dL (14.0-18.0); MEAN CELL VOLUME 92.2 fl (80.0-105.0); MEAN CORPUSCULAR HEMOGLOBIN 31.5 pg (25.0-35.0); MEAN CORPUSCULAR HGB CONC 34.1 g/dl (31.0-37.0); MEAN PLATELET VOLUME 10.2 fl (7.0-11.0); RBC 4.89 10^6/uL (3.5-6.1); RED CELL DISTRIBUTION WIDTH 14.5 % (11.5-14.5); WHITE BLOOD COUNT 12.6 10^3/ul (4.5-11.0)
[2017-09-15 20:02] LABS: INR 0.98 (0.93-1.08); PARTIAL THROMBOPLASTIN TIME 30.4 Seconds (25.1-36.5); PROTHROMBIN TIME 11.2 SECONDS (9.4-12.5)
[2017-09-15 20:06] LABS: ALB/GLOB RATIO 1.4 (1.1-1.8); ALBUMIN 4.8 g/dL (3.0-4.8); ALT/SGPT 83 U/L (7-56); AST/SGOT 49 U/L (17-59); BLOOD UREA NITROGEN 18 mg/dL (7-21); CALCIUM 9.2 mg/dL (8.4-10.5); GFR AFRICAN-AMERICAN > 60; GFR NON-AFRICAN AMERICAN > 60
[2017-09-15 20:15] LABS: TROPONIN I < 0.01 ng/mL
--- NOTE | 2017-09-15 20:32 | ED PDOC ---
Arrival/HPI - General Chief Complaint: Chest Pain Time Seen by Provider: 09/15/17 19:41 Historian: Patient - History of Present Illness Narrative History of Present Illness (Text): 09/15/17 20:25 62 year old male, whose past medical history includes PR, CABG, multiple stents , and hypertension, presents to the Emergency department complaining of onset of chest discomfort and rapid heart rate this evening. Patient describes discomfort as pressure to the chest and heart beating rapidly. Patient also reports a history of SVT; last episode was 1 year ago. Patient denies any fever , chills, cough, shortness of breath, abdominal pain, back pain, leg pain, or any other complaints. Time/Duration: 1-3 hours Symptom Onset: Sudden Symptom Course: Unchanged Context: Home Past Medical History - Provider Review Nursing Documentation Reviewed: Yes - Infectious Disease Hx of Infectious Diseases: None - Tetanus Immunization Tetanus Immunization: Unknown - Cardiac Hx Cardiac Disorders: (mi 2002 1 stent) Hx Angina: Yes Hx Hypertension: Yes Other/Comment: cardiac stent feb 2014, triple bypass 1995 - Pulmonary Hx Respiratory Disorders: No - Neurological Hx Transient Ischemic Attacks (TIA): Yes (December 2013) - HEENT Hx HEENT Disorder: Yes (deviated septum) - Renal Hx Renal Disorder: No - Endocrine/Metabolic Hx Endocrine Disorders: No - Hematological/Oncological Hx Blood Disorders: No - Integumentary Hx Dermatological Disorder: No - Musculoskeletal/Rheumatological Hx Falls: No - Gastrointestinal Hx Gastrointestinal Disorders: No - Genitourinary/Gynecological Hx Genitourinary Disorders: No - Psychiatric Hx Emotional Abuse: No Hx Physical Abuse: No Hx Substance Use: No - Surgical History Hx Cardiac Catheterization: Yes Hx Coronary Stent: Yes (February 2014 x1) Hx Open Heart Surgery: Yes - Anesthesia Hx Anesthesia Reactions: No Hx Malignant Hyperthermia: No - Suicidal Assessment Feels Threatened In Home Enviroment: No Family/Social History - Physician Review Nursing Documentation Reviewed: Yes Family/Social History: Unknown Family HX Smoking Status: Former Smoker Hx Alcohol Use: Yes (social) Frequency of alcohol use: Socially Amount per day: 0 Hx Substance Use: No Hx Substance Use Treatment: No Allergies/Home Meds Allergies/Adverse Reactions: Allergies ciprofloxacin Allergy (Verified 09/15/17 19:38) RASH Home Medications: Home Meds Medication Instructions Recorded Confirmed Atorvastatin [Lipitor] 40 mg PO DAILY 12/31/11 09/15/17 Clopidogrel [Plavix] 75 mg PO DAILY 09/21/16 09/15/17 Lisinopril [Zestril] 5 mg PO DAILY 09/21/16 09/15/17 Metoprolol Tartrate [Lopressor] 25 mg PO DAILY 09/21/16 09/15/17 Review of Systems - Physician Review All systems were reviewed & negative as marked: Yes - Review of Systems Constitutional: absent: Fevers, Night Sweats Respiratory: absent: SOB Cardiovascular: Chest Pain, Palpitations Gastrointestinal: absent: Abdominal Pain Musculoskeletal: absent: Back Pain Physical Exam Vital Signs Reviewed: Yes Vital Signs Temp Pulse Resp BP Pulse Ox 09/15/17 21:12 98.1 F 65 20 107/71 96 09/15/17 19:52 74 14 131/81 96 09/15/17 19:45 164 H 18 126/92 H 98 09/15/17 19:38 164 H 18 126/92 H 98 Blood Pressure: Hypertensive Pulse: Tachycardic Respiratory Rate: Normal Appearance: Positive for: Well-Appearing, Non-Toxic, Comfortable Pain Distress: None Mental Status: Positive for: Alert and Oriented X 3 - Systems Exam Head: Present: Atraumatic, Normocephalic Pupils: Present: PERRL Extroacular Muscles: Present: EOMI Conjunctiva: Present: Normal Mouth: Present: Moist Mucous Membranes Neck: Present: Normal Range of Motion Respiratory/Chest: Present: Clear to Auscultation, Good Air Exchange. No: Respiratory Distress, Accessory Muscle Use Cardiovascular: Present: Tachycardic Abdomen: No: Tenderness, Distention, Peritoneal Signs Back: Present: Normal Inspection Upper Extremity: Present: Normal Inspection. No: Cyanosis, Edema Lower Extremity: Present: Normal Inspection. No: Edema, Cyanosis Neurological: Present: GCS=15, CN II-XII Intact, Speech Normal Skin: Present: Warm, Dry, Normal Color. No: Rashes Psychiatric: Present: Alert, Oriented x 3, Normal Insight, Normal Concentration Medical Decision Making ED Course and Treatment: 09/15/17 20:35 Impression: Differential Diagnosis included but are not limited to: supraventricular tachycardia vs. rapid atrial fibrillation vs. coronary insufficiency Plan: -- Chest xray -- EKG -- Adenosine, Aspirin -- Reassess and disposition Prior Visits: Notes and results from previous visits were reviewed. Patient was last seen in the emergency department on Progress Notes: 09/15/17 20:35 In Emergency department, patient was given IV Adenosine with a return to a normal sinus rhythm. 09/15/17 22:[address] Morrison, who is aware and agrees with plan. Accepts pt in to his service. Pt will go to Telemetry observation for SVT and chest pain. - Critical Care Critical Care Minutes: 30 minutes - Lab Interpretations Lab Results: 09/15/17 19:40 09/15/17 19:40 Lab Results 09/15/17 19:40: WBC 12.6 H, RBC 4.89, Hgb 15.4, Hct 45.1, MCV 92.2, MCH 31.5, MCHC 34.1, RDW 14.5, Plt Count 278, MPV 10.2 09/15/17 19:40: Sodium 145, Potassium 4.2, Chloride 109 H, Carbon Dioxide 17 L, Anion Gap 24 H, BUN 18, Creatinine 0.9, Est GFR ( Amer) > 60, Est GFR ( Non-Af Amer) > 60, Random Glucose 132 H, Calcium 9.2, Total Bilirubin 0.3, AST 49, ALT 83 H, Alkaline Phosphatase 74, Lactate Dehydrogenase 476, Total Creatine Kinase 78, Troponin I < 0.01 D, Total Protein 8.2, Albumin 4.8, Globulin 3.4, Albumin/Globulin Ratio 1.4 09/15/17 19:40: PT 11.2, INR 0.98, APTT 30.4 - RAD Interpretation Narrative RAD Interpretations (Text): 09/15/17 20:25 Chest xray: As ready by me, chest xray shows chronic interstitial changes. Radiology Orders: 09/15/17 19:42 CHEST PORTABLE [RAD] Stat Relationship Manager: ED Physician - EKG Interpretation EKG Interpretation (Text): 09/15/17 19:35 EKG: Ordered, reviewed, and independently interpreted the EKG. Rate : 165 BPM Rhythm : SVT Interpretation : ST-T changes. 09/15/17 19:43 EKG: Ordered, reviewed, and independently interpreted the EKG. Rate : 74 BPM Rhythm : NSR Interpretation : Nonspecific ST-T changes. Interpreted by ED Physician: Yes Type: 12 lead EKG - Medication Orders Current Medication Orders: Discontinued Medications Adenosine (Adenosine 6 Mg/2 Ml Inj) 6 mg IVP STAT STA Stop: 09/15/17 19:41 Last Admin: 09/15/17 19:40 Dose: 6 mg IVP Administration Document 09/15/17 19:40 BRINA (Rec: 09/15/17 19:54 BRINA [facility] [id number]) Charges for Administration # of IVP Administrations 1 Aspirin (Aspirin) 325 mg PO ONCE STA Stop: 09/15/17 19:46 Last Admin: 09/15/17 19:54 Dose: 325 mg - Scribe Statement The provider has reviewed the documentation as recorded by the Scribe [place] All medical record entries made by the Paddyibe were at my direction and personally dictated by me. I have reviewed the chart and agree that the record accurately reflects my personal performance of the history, physical exam, medical decision making, and the department course for this patient. I have also personally directed, reviewed, and agree with the discharge instructions and disposition. Disposition/Present on Arrival - Present on Arrival Any Indicators Present on Arrival: No History of DVT/PE: No History of Uncontrolled Diabetes: No Urinary Catheter: No History of Decub. Ulcer: No History Surgical Site Infection Following: None - Disposition Have Diagnosis and Disposition been Completed?: Yes Diagnosis: Chest pain, SVT (supraventricular tachycardia) Disposition: HOSPITALIZED Disposition Time: 22:35 Patient Plan: Observation Patient Problems: Current Active Problems Problem Status Onset Chest pain Acute SVT (supraventricular tachycardia) Acute Condition: STABLE Discharge Instructions (ExitCare): Chest Pain (ED) Referrals: Avi aJson MD [Primary Care Provider] - Follow up with primary Forms: Chatty (Angolan)
[2017-09-15 21:12] VITALS: RESP 20
[2017-09-16 06:37] VITALS: TEMP 98.7; O2SAT 97
--- NOTE | 2017-09-16 09:20 | RAD ---
HISTORY: fever COMPARISON: 10/07/2016 FINDINGS: LUNGS: No active pulmonary disease. PLEURA: No significant pleural effusion identified, no pneumothorax apparent. CARDIOVASCULAR: Normal. OSSEOUS STRUCTURES: Sternal wires VISUALIZED UPPER ABDOMEN: Normal. OTHER FINDINGS: None. IMPRESSION: No active disease.
[2017-09-16 11:46] VITALS: BP 167/89; PULSE 60
--- NOTE | 2017-09-16 16:22 | CARD ---
APPROVED REPORT EKG Measurement Heart [id number] 184P22 [id number] <Conclusion> Normal sinus rhythm Nonspecific ST and T wave abnormality Abnormal ECG
--- NOTE | 2017-09-16 16:23 | CARD ---
APPROVED REPORT EKG Measurement Heart [id number] <Conclusion> SVT Consider infero-lateral ischemia Abnormal ECG
--- NOTE | 2017-09-16 19:47 | CON ---
DATE: 09/16/2017 INDICATIONS: SVT. HISTORY OF PRESENT ILLNESS: This is a 62-year-old man known to me, admitted yesterday to the emergency room with sudden onset of palpitations, heart racing, chest discomfort. He recognized the onset of recurrent SVT. He came to the emergency room. He was treated with adenosine which caused reversion to sinus rhythm. Subsequently, he has felt well without recurrence of symptoms. There was no chest pain, shortness of breath, orthopnea, PND, syncope, presyncope, lightheadedness, dizziness, or vertigo. There was no fever, chills, cough, sputum production, hemoptysis, abdominal pain, nausea, vomiting, diarrhea, constipation, or melena. PAST MEDICAL HISTORY: Notable for recurrent SVT. This is his fourth episode. We have discussed an EP evaluation. 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 He has considered ablation in the past, but has elected medical therapy. His last episode was about a year ago. He has coronary artery disease, coronary artery bypass surgery. He underwent cardiac catheterization in 09/2016. This disclosed severe triple vessel disease with patent grafts to the LAD, right coronary artery and obtuse marginal branch with normal left ventricular function. There is a history of hypertension, hyperlipidemia, TIA, BPH. MEDICATIONS: At the time of admission include Lipitor, metoprolol, Plavix, lisinopril, and aspirin. ALLERGIES: HE NOTES AN ALLERGY TO CIPRO WHICH CAUSED RASH. SOCIAL HISTORY: He lives at home. He is ambulatory. He is employed. He does not smoke cigarettes. He does not drink alcohol significantly. FAMILY HISTORY: Noncontributory. REVIEW OF SYSTEMS: A 10-point review of systems otherwise unremarkable except as noted above. PHYSICAL EXAMINATION: GENERAL: He is a well-developed male lying in bed on telemetry, in no acute distress. VITAL SIGNS: Notable for sinus rhythm. He has had no further SVT. Heart rate 50 to 65, afebrile, blood pressure 148/84, respirations 20, O2 sat 96% to 97% on room air. HEENT: Reveals no neck vein distention, thyromegaly, or carotid bruits. Mucous membranes are moist. Conjunctivae are pink. NECK: Supple. LUNGS: Lung ac clear. HEART: Revealed normal first and second heart sounds. PMI is not displaced. ABDOMEN: Soft and bowel sounds are present. No mass, organomegaly, tenderness, rebound, guarding, CVA tenderness, or palpable abnormal aortic aneurysm. EXTREMITIES: Reveal no cyanosis, clubbing, or edema. NEUROLOGIC: Awake, alert, and oriented. SKIN: Warm and dry. No rash or cellulitis. PSYCHIATRIC: Normal as to mood and affect. LABORATORY AND IMAGING: Initial EKG demonstrated SVT at 165 beats per minute. There were ST-T wave changes consistent with ischemia. A followup EKG shows sinus rhythm with improved repolarization. Chest x-ray report is not available. The portable chest x-ray shows no evidence of congestive heart failure, infiltrate, or effusion by my reading. White count 12,600, hemoglobin 15.4, hematocrit 45.1, platelet count normal. PT, INR, PTT unremarkable. Electrolytes unremarkable. Chloride 109, carbon dioxide 17. BUN 18, creatinine 0.9. LFTs unremarkable except for mild ALT at 83, CK 78. Two troponin's are negative. IMPRESSION: Rios Bernardo is a 62-year-old man with recurrent supraventricular tachycardia, producing symptoms including chest discomfort and palpitations. Symptoms resolved after treatment with adenosine in the emergency room, which caused reversion to the sinus rhythm. He has remained in sinus rhythm. Two troponin's are negative. He can be out of bed and ambulate. Plan is for discharge later this morning. Follow up in the office and EP reevaluation for possible ablation which he is now more interested in. In the meantime, we will continue his medications including aspirin, Plavix, Lipitor, metoprolol, and lisinopril. He will call us if any symptoms reoccur. We will make arrangements for outpatient followup. Tavo Grey MD JUDI
--- NOTE | 2017-09-16 20:18 | HP ---
HISTORY OF PRESENT ILLNESS: This is a 62-year-old male, who is coming to the hospital because he was having palpitations. He states that he has a history of SVT and it was not breaking on its own, so he came in for further evaluation. The patient was given aspirin and adenosine in the ER. The patient's SVT improved. He denies any palpitations. He said he did have chest pain when this episode happened. He has no fever, no chills, no nausea, no vomiting, no abdominal pain, no back pain, no dysuria, no frequency, no nocturia. REVIEW OF SYSTEMS: All other review of symptoms are within normal limits except what was mentioned. ALLERGIES: TO CIPRO. HOME MEDICATIONS: Lipitor, Plavix, Zestril, Lopressor. PAST MEDICAL HISTORY: 1. TIA. 2. BPH. 3. Dyslipidemia. 4. Coronary artery disease. 5. Hypertension. SOCIAL HISTORY: Does not smoke. He worked in the [employer] for many years. He has no children. He works for the city [facility] [employer]. FAMILY HISTORY: Noncontributory. PHYSICAL EXAMINATION: VITAL SIGNS: Temperature is 98.7, pulse is 57, blood pressure 140/84, respirations 20, O2 saturation 97%. GENERAL: The patient lying in bed, uncomfortable, and in no acute distress. HEENT: Atraumatic and normocephalic. Anicteric sclerae. Moist mucosa. [place] conjunctivae. No oral lesions. NECK: No JVD, anterior and posterior adenopathy, thyromegaly, or bruits. CARDIOVASCULAR: S1 and S2 regular. No murmur, rubs, or gallop. LUNGS: Clear to auscultation bilaterally. No wheezes, rales, or rhonchi. ABDOMEN: Bowel sounds are positive. Soft, nontender and nondistended. No hepatosplenomegaly. No rebound and no guarding EXTREMITIES: No cyanosis, clubbing, or edema. NEUROLOGIC: No facial asymmetry. Tongue is midline. No uvula deviation. Power is 5/5 upper extremity and lower extremity. Sensation intact in upper extremity and lower extremity. PSYCHIATRIC: He is awake, alert and oriented x3. No anxiety or depression. He has normal affect. GENITOURINARY: No CVA tenderness. VASCULAR: 2+ pulses in the carotid pulses and pedal pulses. SKIN: No erythema or nodules SPINE: Shows normal curvature. LABORATORY DATA: White count 4.6. Chemistry shows sodium 145, potassium 4.2, bicarbonate is 17, creatinine 0.9, troponin is 0.01, second one is 0.06. An EKG shows sinus rhythm, nonspecific ST changes. ASSESSMENT: 1. Supraventricular tachycardia, resolved. 2. Coronary artery disease status post coronary artery bypass graft. 3. Benign prostatic hyperplasia. 4. Dyslipidemia. 5. Hypertension. PLAN: The patient is currently comfortable. He is on Lipitor for dyslipidemia. The patient's heart rate is controlled, on telemetry monitoring. He is going to continue with Zestril. He is on Plavix for his coronary artery disease. He was seen by Dr. Grey. He is advised to get discharged by Dr. Grey and follow up in his office for evaluation for an ablation. The patient is going to be discharged home, he was advised to come back to the hospital, if the symptoms returned. Condition is stable. Activity is increased as tolerated. Discharged to home. Davidson Morrison MD
== END 2017-09-16 13:40 | disposition home or self-care (01) ==
LOC: ED 19:30 → INTOOBSV 22:46 → ERH 22:46 → 2RSO 23:20
PROVIDERS: ADMIT Internal Medicine Nephrology; ATTEND Internal Medicine Nephrology
DX: I47.1 Supraventricular tachycardia (principal); I25.10 Atherosclerotic heart disease of native coronary artery without angina pectoris; N40.0 Benign prostatic hyperplasia without lower urinary tract symptoms; E78.5 Hyperlipidemia, unspecified; I10 Essential (primary) hypertension; I25.2 Old myocardial infarction; Z79.02 Long term (current) use of antithrombotics/antiplatelets; Z86.73 Personal history of transient ischemic attack (TIA), and cerebral infarction without residual deficits; Z95.1 Presence of aortocoronary bypass graft; Z95.5 Presence of coronary angioplasty implant and graft; Z88.1 Allergy status to other antibiotic agents
CPT/HCPCS: 36415; 71045; 80053; 82550; 83615; 84484; 85027; 85610; 85730; 93005; 96374; 99285; G0378; J0153

== ENCOUNTER 2018-04-08 15:22 | Emergency (ER) | payer BC ==
[2018-04-08 15:32] VITALS: BMI 32.5
[2018-04-08 15:33] VITALS: TEMP 98.1; O2SAT 99
--- NOTE | 2018-04-08 15:40 | ED PDOC ---
Arrival/HPI - General Time Seen by Provider: 04/08/18 15:27 Historian: Patient - History of Present Illness Narrative History of Present Illness (Text): 04/08/18 15:35 63 year old male, with past medical history of [place], CABG (1995), multiple stents, and hypertension, presents to the Emergency department for evaluation of an episode of palpitations prior to arrival. Patient states he was moving some boxes when he suddenly developed palpitations, similar to symptoms experienced multiple times in the past. Patient states soon developing SVT prompting him to call 911 for evaluation. Patient was given adenosine for SVT of 170 and brought back to R by ALS and was subsequently brought to the Emergency department for medical evaluation. Patient reports associated mild chest pain at the time, which resolved with the palpitations. Currently, patient denies any palpitations or chest pain. Patient denies any other medical complaints. Patient denies any nausea, vomiting, shortness of breath, cough, dyspnea on exertion, neck pain, back pain or any other complaints. Patient denies smoking cigarettes. Patient reports heavily drinking last night, unusual from his occasional intake. Time/Duration: Prior to Arrival Symptom Onset: Sudden Symptom Course: Resolved Activities at Onset: Light Context: Home Associated Symptoms (Text): 04/08/18 16:06 Patient reports palpitations and chest pain prior to arrival which resolved with the medics adenosine. He has had similar episodes multiple times previously diagnosed as SVT. He is discussing an crisis mental health therapist with his drum tester, but he has declined ablation. He is currently symptom-free. No chest pain palpitations or dyspnea. No dizziness or lightheadedness. No nausea or vomiting. No diaphoresis. He feels back to his baseline. Past Medical History - Provider Review Nursing Documentation Reviewed: Yes - Infectious Disease Hx of Infectious Diseases: None - Tetanus Immunization Tetanus Immunization: Unknown - Cardiac Hx Cardiac Disorders: (mi 2001 1 stent) Hx Angina: Yes Other/Comment: cardiac stent feb 2014, triple bypass 1995 - Pulmonary Hx Respiratory Disorders: No - Neurological Hx Transient Ischemic Attacks (TIA): Yes (December 2013) - HEENT Hx HEENT Disorder: Yes (deviated septum) - Renal Hx Renal Disorder: No - Endocrine/Metabolic Hx Endocrine Disorders: No - Hematological/Oncological Hx Blood Disorders: No - Integumentary Hx Dermatological Disorder: No - Musculoskeletal/Rheumatological Hx Falls: No - Gastrointestinal Hx Gastrointestinal Disorders: No - Genitourinary/Gynecological Hx Genitourinary Disorders: No - Psychiatric Hx Emotional Abuse: No Hx Physical Abuse: No Hx Substance Use: No - Surgical History Hx Cardiac Catheterization: Yes Hx Coronary Stent: Yes (February 2014 x1) Hx Open Heart Surgery: Yes - Anesthesia Hx Anesthesia Reactions: No Hx Malignant Hyperthermia: No - Suicidal Assessment Feels Threatened In Home Enviroment: No Family/Social History - Physician Review Nursing Documentation Reviewed: Yes Family/Social History: Unknown Family HX Smoking Status: Former Smoker Hx Alcohol Use: Yes (social) Amount per day: 0 Hx Substance Use: No Hx Substance Use Treatment: No Allergies/Home Meds Allergies/Adverse Reactions: Allergies ciprofloxacin Allergy (Verified 04/08/18 15:32) RASH Home Medications: Home Meds Medication Instructions Recorded Confirmed Atorvastatin [Lipitor] 40 mg PO DAILY 12/31/11 04/08/18 Clopidogrel [Plavix] 75 mg PO DAILY 09/21/16 04/08/18 Lisinopril [Zestril] 5 mg PO DAILY 09/21/16 04/08/18 Metoprolol Tartrate [Lopressor] 25 mg PO DAILY 09/21/16 04/08/18 Review of Systems - Physician Review All systems were reviewed & negative as marked: Yes - Review of Systems Constitutional: absent: Fatigue, Fevers Respiratory: absent: SOB, Cough Cardiovascular: absent: Chest Pain, Palpitations, Syncope Gastrointestinal: absent: Abdominal Pain, Diarrhea, Nausea, Vomiting Musculoskeletal: absent: Back Pain, Neck Pain Neurological: absent: Headache, Dizziness, Focal Weakness Physical Exam Vital Signs Reviewed: Yes Vital Signs Temp Pulse Resp BP Pulse Ox 04/08/18 15:33 98.1 F 81 18 150/81 99 Temperature: Afebrile Blood Pressure: Normal Pulse: Regular Respiratory Rate: Normal Appearance: Positive for: Well-Appearing, Non-Toxic, Comfortable Pain Distress: None Mental Status: Positive for: Alert and Oriented X 3 - Systems Exam Head: Present: Atraumatic, Normocephalic Pupils: Present: PERRL Extroacular Muscles: Present: EOMI Conjunctiva: Present: Normal Mouth: Present: Moist Mucous Membranes Pharnyx: No: ERYTHEMA, EXUDATE, TONSILS ENLARGED Neck: Present: Normal Range of Motion Respiratory/Chest: Present: Clear to Auscultation, Good Air Exchange. No: Respiratory Distress, Accessory Muscle Use Cardiovascular: Present: Regular Rate and Rhythm, Normal S1, S2. No: Murmurs Abdomen: No: Tenderness, Distention, Peritoneal Signs Back: Present: Normal Inspection Upper Extremity: Present: Normal Inspection. No: Cyanosis, Edema Lower Extremity: Present: Normal Inspection. No: Edema Neurological: Present: GCS=15, CN II-XII Intact, Speech Normal, Motor Func Grossly Intact, Gait Normal Skin: Present: Warm, Dry, Normal Color. No: Rashes Psychiatric: Present: Alert, Oriented x 3, Normal Insight, Normal Concentration Medical Decision Making ED Course and Treatment: 04/08/18 15:32 Impression: 63 year old male presents to the Emergency department complaining of a resolved episode of palpitations. Plan: -- EKG -- Labs -- Chest X-ray -- Reassess and disposition Prior Visits: Notes and results from previous visits were reviewed. Progress Notes: 04/08/18 16:08 EKG shows normal sinus rhythm rate approximately [address] and T- wave changes and no acute changes. 04/08/18 16:28 Chest X-ray reviewed, shows: FINDINGS: LUNGS:No active pulmonary disease. PLEURA:No significant pleural effusion identified, no pneumothorax apparent. CARDIOVASCULAR:No aortic atherosclerotic calcification present. Mild cardiomegaly no pulmonary vascular congestion. OSSEOUS STRUCTURES:Sternal wires VISUALIZED UPPER ABDOMEN:Normal. OTHER FINDINGS:None. IMPRESSION: No active disease. 04/08/18 16:56 Patient remains comfortable with no palpitations and no chest pain. He has remained in normal sinus rhythm. Discussed with the patient that he wants to go home and he will follow-up with his drum tester , to discuss possible ablation. - RAD Interpretation Radiology Orders: 04/08/18 15:32 CHEST PORTABLE [RAD] Stat Chest one view as read by the radiologist shows mild cardiomegaly and hardware. No infiltrate or effusion. Offal Icer Poultry: Radiologist - Scribe Statement The provider has reviewed the documentation as recorded by the Scribmichelle Boyd. All medical record entries made by the Scribe were at my direction and personally dictated by me. I have reviewed the chart and agree that the record accurately reflects my personal performance of the history, physical exam, medical decision making, and the department course for this patient. I have also personally directed, reviewed, and agree with the discharge instructions and disposition. Disposition/Present on Arrival - Present on Arrival Any Indicators Present on Arrival: No History of DVT/PE: No History of Uncontrolled Diabetes: No Urinary Catheter: No History of Decub. Ulcer: No History Surgical Site Infection Following: None - Disposition Have Diagnosis and Disposition been Completed?: Yes Diagnosis: SVT (supraventricular tachycardia) Disposition: HOME/ ROUTINE Disposition Time: 16:56 Patient Plan: Discharge Condition: GOOD Discharge Instructions (ExitCare): Supraventricular Tachycardia (SVT)
[2018-04-08 16:17] LABS: BASO # 0.01 K/mm3 (0.0-2.0); BASO % 0.1 % (0.0-3.0); EOS # 0.1 (0.0-0.7); GRAN # 4.68 (1.4-6.5); GRAN % 70.3 % (50.0-68.0); HEMOGLOBIN 14.1 g/dL (14.0-18.0); LYMPH # 1.5 (1.2-3.4); LYMPH % 23.1 % (22.0-35.0); MEAN CELL VOLUME 94.8 fl (80.0-105.0); MEAN CORPUSCULAR HEMOGLOBIN 31.8 pg (25.0-35.0); MEAN CORPUSCULAR HGB CONC 33.5 g/dl (31.0-37.0); MEAN PLATELET VOLUME 10.3 fl (7.0-11.0); MONO # 0.4 (0.1-0.6); MONO % 5.5 % (1.0-6.0); RBC 4.44 10^6/uL (3.5-6.1); WHITE BLOOD COUNT 6.7 10^3/uL (4.5-11.0)
--- NOTE | 2018-04-08 16:19 | RAD ---
Date of service: 04/08/2018 HISTORY: palp COMPARISON: 09/15/2017 FINDINGS: LUNGS: No active pulmonary disease. PLEURA: No significant pleural effusion identified, no pneumothorax apparent. CARDIOVASCULAR: No aortic atherosclerotic calcification present. Mild cardiomegaly no pulmonary vascular congestion. OSSEOUS STRUCTURES: Sternal wires VISUALIZED UPPER ABDOMEN: Normal. OTHER FINDINGS: None. IMPRESSION: No active disease.
[2018-04-08 16:29] LABS: ALB/GLOB RATIO 1.2 (1.1-1.8); ALBUMIN 4.1 g/dL (3.0-4.8); ALT/SGPT 102 U/L (7-56); AST/SGOT 94 U/L (17-59); BLOOD UREA NITROGEN 26 mg/dL (7-21); CALCIUM 9.2 mg/dL (8.4-10.5); GFR NON-AFRICAN AMERICAN > 60
[2018-04-08 16:39] LABS: TROPONIN I 0.01 ng/mL
[2018-04-08 17:18] VITALS: BP 151/76; PULSE 74; RESP 16
--- NOTE | 2018-04-08 19:22 | CARD ---
APPROVED REPORT Date of service: 04/08/2018 EKG Measurement Heart [id number] CA [id number] [id number] <Conclusion> Normal sinus rhythm Nonspecific ST and T wave abnormality Abnormal ECG
== END 2018-04-08 17:57 | disposition home or self-care (01) ==
LOC: ED 15:22
DX: I47.1 Supraventricular tachycardia (principal); I10 Essential (primary) hypertension; I25.2 Old myocardial infarction; Z86.73 Personal history of transient ischemic attack (TIA), and cerebral infarction without residual deficits; Z95.1 Presence of aortocoronary bypass graft; Z95.5 Presence of coronary angioplasty implant and graft; Z87.891 Personal history of nicotine dependence

== ENCOUNTER 2018-07-08 14:16 | Inpatient (IN) | payer BC ==
--- NOTE | 2018-07-08 14:33 | ED PDOC ---
Arrival/HPI - General Chief Complaint: Chest Pain Time Seen by Provider: 07/08/18 14:18 Historian: Patient - History of Present Illness Narrative History of Present Illness (Text): 07/08/18 14:30 63 year old male, with past medical history of [place], CABG (1995), multiple stents, and hypertension, presents to the ED for evaluation of a sudden onset of substernal chest tightness described as burning prior to arrival. Patient report s onset of a similar episode at 10 am this morning, which spontaneously resolved with time. Patient reports symptoms returned prior to arrival while shoveling snow, prompting him to present to the ED for medical evaluation. Patient denies any other associated somatic complaints. Patient denies any fevers, chills, headache, dizziness, shortness of breath, dyspnea on exertion, cough, abdominal pain, nausea, vomiting, diarrhea, back pain, neck pain, or any other complaints. Press Operator Printing: Dr. Grey/Dr. Muse Time/Duration: Prior to Arrival Symptom Onset: Sudden Symptom Course: Improving Activities at Onset: Light Context: Other (Shoveling snow) Past Medical History - Provider Review Nursing Documentation Reviewed: Yes - Infectious Disease Hx of Infectious Diseases: None - Tetanus Immunization Tetanus Immunization: Unknown - Cardiac Hx Cardiac Disorders: (mi 2001 1 stent) Hx Angina: Yes Other/Comment: cardiac stent feb 2014, triple bypass 1995 - Pulmonary Hx Respiratory Disorders: No - Neurological Hx Transient Ischemic Attacks (TIA): Yes (December 2013) - HEENT Hx HEENT Disorder: Yes (deviated septum) - Renal Hx Renal Disorder: No - Endocrine/Metabolic Hx Endocrine Disorders: No - Hematological/Oncological Hx Blood Disorders: No - Integumentary Hx Dermatological Disorder: No - Musculoskeletal/Rheumatological Hx Falls: No - Gastrointestinal Hx Gastrointestinal Disorders: No - Genitourinary/Gynecological Hx Genitourinary Disorders: No - Psychiatric Hx Emotional Abuse: No Hx Physical Abuse: No Hx Substance Use: No - Surgical History Hx Cardiac Catheterization: Yes Hx Coronary Stent: Yes (February 2014 x1) Hx Open Heart Surgery: Yes - Anesthesia Hx Anesthesia Reactions: No Hx Malignant Hyperthermia: No - Suicidal Assessment Feels Threatened In Home Enviroment: No Family/Social History - Physician Review Nursing Documentation Reviewed: Yes Family/Social History: No Known Family HX Smoking Status: Former Smoker Hx Alcohol Use: Yes (social) Frequency of alcohol use: Socially Amount per day: 0 Hx Substance Use: No Hx Substance Use Treatment: No Allergies/Home Meds Allergies/Adverse Reactions: Allergies ciprofloxacin Allergy (Verified 04/08/18 15:32) RASH Home Medications: Home Meds Medication Instructions Recorded Confirmed RX: Atorvastatin [Lipitor] 40 mg PO DAILY 12/31/11 07/08/18 RX: Clopidogrel [Plavix] 75 mg PO DAILY 09/21/16 07/08/18 RX: Lisinopril [Zestril] 5 mg PO DAILY 09/21/16 07/08/18 RX: Metoprolol Tartrate [Lopressor] 25 mg PO DAILY 09/21/16 07/08/18 Review of Systems - Physician Review All systems were reviewed & negative as marked: Yes - Review of Systems Constitutional: absent: Fevers Respiratory: absent: SOB, Cough Cardiovascular: Chest Pain Gastrointestinal: absent: Abdominal Pain, Diarrhea, Nausea, Vomiting Genitourinary Male: absent: Dysuria, Urinary Output Changes Musculoskeletal: absent: Back Pain, Neck Pain Neurological: absent: Headache, Dizziness Psychiatric: absent: Anxiety Physical Exam Vital Signs Reviewed: Yes Vital Signs Temp Pulse Resp BP Pulse Ox 07/08/18 14:27 97.5 F L 67 20 143/76 97 Temperature: Afebrile Blood Pressure: Normal Pulse: Regular Respiratory Rate: Normal Appearance: Positive for: Well-Appearing, Non-Toxic, Comfortable Pain Distress: None Mental Status: Positive for: Alert and Oriented X 3 - Systems Exam Head: Present: Atraumatic, Normocephalic Pupils: Present: PERRL Extroacular Muscles: Present: EOMI Conjunctiva: Present: Normal Neck: Present: Normal Range of Motion Respiratory/Chest: Present: Clear to Auscultation, Good Air Exchange. No: Respiratory Distress, Accessory Muscle Use Cardiovascular: Present: Regular Rate and Rhythm, Normal S1, S2. No: Murmurs Abdomen: No: Tenderness, Distention, Peritoneal Signs Back: Present: Normal Inspection Upper Extremity: Present: Normal Inspection. No: Cyanosis, Edema Lower Extremity: Present: Normal Inspection. No: Edema Neurological: Present: GCS=15, CN II-XII Intact, Speech Normal Skin: Present: Warm, Dry, Normal Color. No: Rashes Psychiatric: Present: Alert, Oriented x 3, Normal Insight, Normal Concentration Medical Decision Making ED Course and Treatment: 07/08/18 14:33 Impression: 63 year old male presents to the ED for evaluation of chest pain prior to arrival. Plan: -- EKG -- Labs -- CXR -- Reassess and disposition Prior Visits: Notes and results from previous visits were reviewed. Progress Notes: 07/08/18 14:[address] Muse, who is aware and believes it is not a true STEMI. Requests patient to be give 5000 units of heparin and transfer to labor commissioner. 07/08/18 14:30 EKG reviewed, shows NSR @66 bpm, nml interval, nml axis, T-wave depression in leads V2-V6. 07/08/18 14:51 Patient informs compliance with all his medications this morning, including Plavix. 07/08/18 14:[address] Morrison, who is aware and agrees with ED management plan, accepts patient admission under his service. 07/08/18 15:24 Chest X-ray reviewed by radiologist, shows no active disease. 07/08/18 16:09 Admissions called and was informed that patient to be moved to ICU. Will change admission order for ICU. - RAD Interpretation Radiology Orders: 07/08/18 14:27 CHEST PORTABLE [RAD] Stat Finish Opener: Radiologist - EKG Interpretation Interpreted by ED Physician: Yes Type: 12 lead EKG - Scribe Statement The provider has reviewed the documentation as recorded by the Scribe Yousuf Boyd. All medical record entries made by the Scribe were at my direction and personally dictated by me. I have reviewed the chart and agree that the record accurately reflects my personal performance of the history, physical exam, medical decision making, and the department course for this patient. I have also personally directed, reviewed, and agree with the discharge instructions and disposition. Disposition/Present on Arrival - Present on Arrival Any Indicators Present on Arrival: No History of DVT/PE: No History of Uncontrolled Diabetes: No Urinary Catheter: No History of Decub. Ulcer: No History Surgical Site Infection Following: None - Disposition Have Diagnosis and Disposition been Completed?: Yes Diagnosis: NSTEMI (non-ST elevated myocardial infarction) Disposition: HOSPITALIZED Disposition Time: 14:57 Patient Plan: Admission Condition: STABLE
[2018-07-08 14:42] LABS: BASO # 0.02 K/mm3 (0.0-2.0); BASO % 0.2 % (0.0-3.0); EOS % 0.1 % (1.5-5.0); HEMOGLOBIN 13.7 g/dL (14.0-18.0); LYMPH # 1.1 (1.2-3.4); MEAN CELL VOLUME 94.5 fl (80.0-105.0); MEAN CORPUSCULAR HEMOGLOBIN 31.4 pg (25.0-35.0); MEAN CORPUSCULAR HGB CONC 33.3 g/dl (31.0-37.0); MEAN PLATELET VOLUME 10.1 fl (7.0-11.0); MONO # 0.5 (0.1-0.6); RBC 4.36 10^6/uL (3.5-6.1); RED CELL DISTRIBUTION WIDTH 13.9 % (11.5-14.5)
[2018-07-08 14:46] LABS: INR 1.08; PARTIAL THROMBOPLASTIN TIME 32.3 Seconds (26.9-38.3)
[2018-07-08 14:50] LABS: ALB/GLOB RATIO 1.3 (1.1-1.8); ALBUMIN 4.3 g/dL (3.0-4.8); ALT/SGPT 40 U/L (7-56); AST/SGOT 47 U/L (17-59); BLOOD UREA NITROGEN 22 mg/dL (7-21); CALCIUM 9.5 mg/dL (8.4-10.5); GFR NON-AFRICAN AMERICAN > 60
[2018-07-08] MEDS ORDERED: Phenylephrine 10 mg/ml Inj ONE (15:00)
[2018-07-08] MEDS ORDERED: Iodixanol 320 MG/ML 100 ML BOTTLE IV ONE (15:00)
[2018-07-08] MEDS ORDERED: Lidocaine 2% Inj (20ml) ONE (15:00)
[2018-07-08] MEDS ORDERED: Iodixanol 320 MG/ML 200 ML BOTTLE IV ONE (15:00)
[2018-07-08] MEDS ORDERED: Iohexol 350mgl/ml 50 ML ONE (15:00)
--- NOTE | 2018-07-08 15:13 | RAD ---
Date of service: 07/08/2018 HISTORY: chest pain COMPARISON: 04/08/2018 FINDINGS: LUNGS: No active pulmonary disease. PLEURA: No significant pleural effusion identified, no pneumothorax apparent. CARDIOVASCULAR: No aortic atherosclerotic calcification present. Normal heart size. Sternotomy wires. No pulmonary vascular congestion. OSSEOUS STRUCTURES: No significant abnormalities. VISUALIZED UPPER ABDOMEN: Normal. OTHER FINDINGS: None. IMPRESSION: No active disease.
[2018-07-08 15:20] LABS: TROPONIN I 0.24 ng/mL
[2018-07-08] MEDS ORDERED: Midazolam 2 MG/2 ML VIAL ONE ×2 (15:22→15:38)
[2018-07-08] MEDS ORDERED: Sodium Chloride 0.9% 1,000 ML IV SCH (16:15)
--- NOTE | 2018-07-08 17:27 | CP.PCM.CON ---
<Henrry Alfaro - Last Filed: 07/08/18 17:18> History of Present Illness - History of Present Illness History of Present Illness: ICU Consult Note for Dr. Winkler Reason for Consultation: S/p Cardiac Catherization Patient is a 63 yo M with PMH of CAD s/p CABG and multiple stents, HTN, HLD, and TIA [place] [facility] due to left-sided substernal chest pain and dyspnea on exertion. Patient states that he was shoveling snow this morning when pain started. Patient states that symptoms alleviated somewhat when he rested, but proceeded to ED as his symptoms were similar to MS's he's had in the past. In the ED, patient was found to have an NSTEMI and was emergently taken to the soap slabber where one drug-eluting stent was placed from the SVG to the OM. Patient is currently resting comfortably in the ICU after catherization. Currently, patient denies CP, SOB, n/v/d, abdominal pain, fever, chills, BAÑUELOS, or dizziness. PMH: as above Surg: CABG, left inguinal hernia repair, deviated septum repair All: Cipro SH: Former 1.5 ppd smoker, quit 30 years ago; Wine 2-3/week; denied illicit drug use FHx: CAD Review of Systems - Review of Systems All systems: reviewed and no additional remarkable complaints except (12 point ROS reviewed and is negative other than what is stated in HPI.) Past Patient History - Infectious Disease Hx of Infectious Diseases: None - Tetanus Immunizations Tetanus Immunization: Unknown - Past Medical History & Family History Past Medical History?: Yes - Past Social History Smoking Status: Former Smoker - CARDIAC Hx Cardiac Disorders: (mi 2001 1 stent) Hx Angina: Yes Other/Comment: cardiac stent feb 2014, triple bypass 1995 - PULMONARY Hx Respiratory Disorders: No - NEUROLOGICAL Hx Transient Ischemic Attacks (TIA): Yes (December 2013) - HEENT Hx HEENT Problems: Yes (deviated septum) - RENAL Hx Chronic Kidney Disease: No - ENDOCRINE/METABOLIC Hx Endocrine Disorders: No - HEMATOLOGICAL/ONCOLOGICAL Hx Blood Disorders: No - INTEGUMENTARY Hx Dermatological Problems: No - MUSCULOSKELETAL/RHEUMATOLOGICAL Hx Falls: No - GASTROINTESTINAL Hx Gastrointestinal Disorders: No - GENITOURINARY/GYNECOLOGICAL Hx Genitourinary Disorders: No - PSYCHIATRIC Hx Emotional Abuse: No Hx Physical Abuse: No Hx Substance Use: No - SURGICAL HISTORY Hx Cardiac Catheterization: Yes Hx Coronary Stent: Yes (February 2014 x1) Hx Open Heart Surgery: Yes - ANESTHESIA Hx Anesthesia Reactions: No Hx Malignant Hyperthermia: No Meds Allergies/Adverse Reactions: Allergies Allergy/AdvReac Type Severity Reaction Status Date / Time ciprofloxacin Allergy RASH Verified 04/08/18 15:32 - Medications Medications: Current Medications Acetaminophen (Tylenol 325mg Tab) 650 mg PO Q4H PRN PRN Reason: Pain, Mild (1-3) Alprazolam (Xanax) 0.25 mg PO BID PRN PRN Reason: Anxiety Stop: 07/15/18 16:08 Aspirin (Ecotrin) 81 mg PO DAILY [facility] Atorvastatin Calcium (Lipitor) 80 mg PO DIN [facility] Clopidogrel Bisulfate (Plavix) 75 mg PO DAILY [facility] Docusate Sodium (Colace) 100 mg PO BID [facility] Sodium Chloride (Sodium Chloride 0.9%) 1,000 mls @ 100 mls/hr IV .Q10H AIXA Stop: 07/08/18 22:16 Last Admin: 07/08/18 16:43 Dose: 100 mls/hr Metoprolol Succinate (Toprol Xl) 50 mg PO DAILY [facility] Ondansetron HCl (Zofran Inj) 4 mg IV ONCE PRN PRN Reason: Nausea/Vomiting Zolpidem Tartrate (Ambien) 5 mg PO HS PRN PRN Reason: Insomnia Physical Exam - Constitutional Appears: No Acute Distress - Head Exam Head Exam: NORMAL INSPECTION - Eye Exam Eye Exam: EOMI, Normal appearance, PERRL Pupil Exam: NORMAL ACCOMODATION - ENT Exam ENT Exam: Mucous Membranes Moist, Normal Exam - Neck Exam Neck exam: Positive for: Normal Inspection - Respiratory Exam Respiratory Exam: Clear to Auscultation Bilateral. absent: Rales, Rhonchi, Wheezes - Cardiovascular Exam Cardiovascular Exam: RRR, +S1, +S2. absent: Diastolic murmur, Gallop, Rubs, Systolic Murmur - GI/Abdominal Exam GI & Abdominal Exam: Soft. absent: Distended, Guarding, Rebound, Tenderness - Extremities Exam Extremities exam: Positive for: normal inspection Additional comments: cath site on right groin: dressings c/d/i - Neurological Exam Neurological exam: Alert, Oriented x3 - Psychiatric Exam Psychiatric exam: Normal Mood - Skin Skin Exam: Normal Color, Warm Results - Vital Signs Recent Vital Signs: Last Vital Signs Temp 97.7 F 07/08/18 17:07 Pulse 50 L 07/08/18 17:07 Resp 20 07/08/18 17:07 BP 145/79 07/08/18 17:07 Pulse Ox 99 07/08/18 17:07 - Labs Result Diagrams: 07/08/18 14:30 07/08/18 14:30 Labs: Laboratory Results - last 24 hr 07/08/18 07/08/18 07/08/18 14:30 14:30 14:30 WBC 10.0 D RBC 4.36 Hgb 13.7 L Hct 41.2 L MCV 94.5 MCH 31.4 MCHC 33.3 RDW 13.9 Plt Count 216 MPV 10.1 Neut % (Auto) 83.7 H Lymph % (Auto) 11.0 L Posey % (Auto) 5.0 Eos % (Auto) 0.1 L Baso % (Auto) 0.2 Lymph # (Auto) 1.1 L Posey # (Auto) 0.5 Eos # (Auto) 0.0 Baso # (Auto) 0.02 Absolute Neuts (auto) 8.40 H PT 12.0 INR 1.08 APTT 32.3 Sodium 139 Potassium 4.4 Chloride 108 H Carbon Dioxide 22 Anion Gap 13 BUN 22 H Creatinine 0.9 Est GFR ( Amer) > 60 Est GFR (Non-Af Amer) > 60 Random Glucose 143 H Calcium 9.5 Total Bilirubin 0.4 AST 47 ALT 40 Alkaline Phosphatase 74 Troponin I 0.24 H* D Total Protein 7.6 Albumin 4.3 Globulin 3.3 Albumin/Globulin Ratio 1.3 Blood Type Antibody Screen BBK History Checked 07/08/18 14:45 WBC RBC Hgb Hct MCV MCH MCHC RDW Plt Count MPV Neut % (Auto) Lymph % (Auto) Posey % (Auto) Eos % (Auto) Baso % (Auto) Lymph # (Auto) Posey # (Auto) Eos # (Auto) Baso # (Auto) Absolute Neuts (auto) PT INR APTT Sodium Potassium Chloride Carbon Dioxide Anion Gap BUN Creatinine Est GFR ( Amer) Est GFR (Non-Af Amer) Random Glucose Calcium Total Bilirubin AST ALT Alkaline Phosphatase Troponin I Total Protein Albumin Globulin Albumin/Globulin Ratio Blood Type A POSITIVE Antibody Screen Negative BBK History Checked Patient has bt Assessment & Plan - Assessment and Plan (Free Text) Assessment: 63 yo M with PMH of CAD s/p CABG and multiple stents, HTN, HLD, and TIA presents to [facility] with chest pain and dyspnea on exertion. Patient was found to have an NSTEMI and underwent cardiac catherization with DONALD placed from SVG to OM. Patient will be admitted to ICU s/p cardiac catherization for further monitoring. 1. NSTEMI s/p cardiac catherization with 1 DONALD 2. HTN 3. HLD Plan: - Monitor vitals and catherization site for any bleeding - Trend cardiac enzymes - EKG in AM - Echo - NS at 100 cc/hr - DAPT - Lipitor - Toprol XL - Cardiology following Patient discussed in detail with Dr. Winkler. Juan Diego Alfaro, DO PGY2 <Hazel Winkler - Last Filed: 07/08/18 18:10> Meds - Medications Medications: Current Medications Acetaminophen (Tylenol 325mg Tab) 650 mg PO Q4H PRN PRN Reason: Pain, Mild (1-3) Alprazolam (Xanax) 0.25 mg PO BID PRN PRN Reason: Anxiety Stop: 07/15/18 16:08 Aspirin (Ecotrin) 81 mg PO DAILY [facility] Atorvastatin Calcium (Lipitor) 80 mg PO DIN [facility] Last Admin: 07/08/18 17:56 Dose: Not Given Clopidogrel Bisulfate (Plavix) 75 mg PO DAILY [facility] Docusate Sodium (Colace) 100 mg PO BID [facility] Sodium Chloride (Sodium Chloride 0.9%) 1,000 mls @ 100 mls/hr IV .Q10H AIXA Stop: 07/08/18 22:16 Last Admin: 07/08/18 16:43 Dose: 100 mls/hr Metoprolol Succinate (Toprol Xl) 50 mg PO DAILY [facility] Ondansetron HCl (Zofran Inj) 4 mg IV ONCE PRN PRN Reason: Nausea/Vomiting Zolpidem Tartrate (Ambien) 5 mg PO HS PRN PRN Reason: Insomnia Results - Vital Signs Recent Vital Signs: Last Vital Signs Temp 97.6 F 07/08/18 17:37 Pulse 44 L 07/08/18 17:37 Resp 13 07/08/18 17:37 BP 139/75 07/08/18 17:37 Pulse Ox 98 07/08/18 17:37 - Labs Result Diagrams: 07/08/18 14:30 07/08/18 14:30 Labs: Laboratory Results - last 24 hr 07/08/18 07/08/18 07/08/18 14:30 14:30 14:30 WBC 10.0 D RBC 4.36 Hgb 13.7 L Hct 41.2 L MCV 94.5 MCH 31.4 MCHC 33.3 RDW 13.9 Plt Count 216 MPV 10.1 Neut % (Auto) 83.7 H Lymph % (Auto) 11.0 L Posey % (Auto) 5.0 Eos % (Auto) 0.1 L Baso % (Auto) 0.2 Lymph # (Auto) 1.1 L Posey # (Auto) 0.5 Eos # (Auto) 0.0 Baso # (Auto) 0.02 Absolute Neuts (auto) 8.40 H PT 12.0 INR 1.08 APTT 32.3 Sodium 139 Potassium 4.4 Chloride 108 H Carbon Dioxide 22 Anion Gap 13 BUN 22 H Creatinine 0.9 Est GFR ( Amer) > 60 Est GFR (Non-Af Amer) > 60 Random Glucose 143 H Calcium 9.5 Total Bilirubin 0.4 AST 47 ALT 40 Alkaline Phosphatase 74 Troponin I 0.24 H* D Total Protein 7.6 Albumin 4.3 Globulin 3.3 Albumin/Globulin Ratio 1.3 Blood Type Antibody Screen BBK History Checked 07/08/18 14:45 WBC RBC Hgb Hct MCV MCH MCHC RDW Plt Count MPV Neut % (Auto) Lymph % (Auto) Posey % (Auto) Eos % (Auto) Baso % (Auto) Lymph # (Auto) Posey # (Auto) Eos # (Auto) Baso # (Auto) Absolute Neuts (auto) PT INR APTT Sodium Potassium Chloride Carbon Dioxide Anion Gap BUN Creatinine Est GFR ( Amer) Est GFR (Non-Af Amer) Random Glucose Calcium Total Bilirubin AST ALT Alkaline Phosphatase Troponin I Total Protein Albumin Globulin Albumin/Globulin Ratio Blood Type A POSITIVE Antibody Screen Negative BBK History Checked Patient has bt Addendum Addendum: 07/08/18 18:10 ICU Attending Addendum Patient seen and examined. Case reviewed on round with housestaff. Agree with resident note above with the following additions/exceptions 63 M PMH of CAD s/p CABG and multiple stents, HTN, HLD, and TIA found to have an NSTEMI s/p cardiac catherization with DONALD placed from SVG to OM. currently hemodynamiclly stable no chest pain will follow cardio recs for post-cath management monitor in ICU Rest of care as above in housestaff note Hazel Winkler MD Pulmonary Critical Care Attending
[2018-07-08 19:13] LABS: CK-MB 70.4 ng/mL (0.0-3.6); TROPONIN I 7.46 ng/mL
--- NOTE | 2018-07-08 19:33 | CON ---
DATE: 07/08/2018 REQUESTING PHYSICIAN: Davidson Morrison MD REASON FOR CONSULTATION: Clc-BP-lesiwim elevation myocardial infarction. HISTORY: This is a 63-year-old man well known to us with a history of coronary artery disease status post prior bypass surgery, who developed severe retrosternal chest pain earlier today while shoveling snow. Upon presentation to emergency room, he had chest pain and deep ST depressions across all leads. Emergency catheterization was advised. His last catheterization several years ago had revealed patent bypass grafts and severe three-vessel coronary disease and normal LV function. PAST MEDICAL HISTORY: His past history is also notable for hypertension, hyperlipidemia, a prior TIA, recurrent SVT and BPH. He also reportedly has an elevated PSA which needs evaluation. MEDICATIONS AT HOME: Include aspirin, Plavix, metoprolol 25 mg daily, Lipitor 40 mg daily and Zestril 5 mg daily. ALLERGIES: CIPROFLOXACIN. SOCIAL HISTORY: He does not smoke or drink. He lives at home. 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 FAMILY HISTORY: Unremarkable for premature heart disease. REVIEW OF SYSTEMS: A 10-point review of systems is notable as mentioned above. PHYSICAL EXAMINATION: GENERAL: He is an anxious-appearing, middle-aged man. VITAL SIGNS: His blood pressure was 140/76 with a pulse of 66, respirations of 14. He is afebrile. HEENT: No JVD. CHEST: Few scattered rhonchi. HEART: PMI in normal position. Systolic murmur is present at lower left sternal border. ABDOMEN: Soft and nontender with normoactive bowel sounds. EXTREMITIES: No edema. SKIN: Warm and dry. PSYCHIATRIC: Normal mood and affect. DIAGNOSTIC DATA: Potassium 4.4. BUN and creatinine 22 and 0.9. Glucose 143. Troponin 0.24. White count 10, hemoglobin and hematocrit 13.7 and 41.2 with platelet count 216,000. Electrocardiogram, sinus rhythm with deep ST depressions in the inferior and lateral leads. Chest x-ray, normal cardiac silhouette with clear lung ac and post-sternotomy changes. IMPRESSION: 1. [id number] elevation myocardial infarction. 2. Coronary artery disease status post prior bypass surgery. 3. Rest of problems as noted. RECOMMENDATIONS: The patient will be brought emergently to the cardiac catheterization lab and undergo cardiac catheterization and possible intervention should suitable anatomy be found. Aspirin and Plavix will be continued. IV heparin has been administered. Further recommendations and plans will be made based upon the results of his catheterization. Babak Flowers MD [facility]
[2018-07-08 22:36] VITALS: BMI 31.4
[2018-07-08] MEDS ORDERED: Influenza Vaccine 60 mcg/0.5 mL SYR (4YR UP) IM ONE (22:37)
[2018-07-08] MEDS ORDERED: Pneumococcal 23-Valent Vaccine IM ONE (22:37)
--- NOTE | 2018-07-09 01:11 | CARDCATH ---
DATE: CARDIAC CATHETERIZATION REPORT PROCEDURE: 1. Selective left and right coronary angiography. 2. Saphenous venography. 3. Left internal mammary arteriography. 4. Left ventriculography. 5. Percutaneous coronary intervention of saphenous vein graft to obtuse marginal with drug-eluting stent. 6. Right femoral arteriography. 7. Mynx deployment. HISTORY: This is a 63-year-old male with known coronary artery disease, status post prior bypass surgery who presents to the emergency room with intense retrosternal chest discomfort when shoveling snow earlier today. His EKG showed marked ST-depressions across the precordium and lateral leads, emergency catheterization was advised. INDICATION: Non-ST segment elevation myocardial infarction. FINDINGS: HEMODYNAMICS: The aortic pressure was 130/70 and left ventricular pressure 130/16. CORONARY ANATOMY: 1. Left main stem was occluded. 2. The right coronary artery was occluded in the mid portion. 3. Saphenous vein graft to the RCA was patent and there was a mild proximal tapering and would appear to be an area of venous valves of 30% severity, the distal vessel had mild diffuse irregularities. 4. The left internal mammary artery and LAD was widely patent with good distal runoff. 5. Saphenous vein graft to the obtuse marginal branch, had a 99% stenosis at the anastomosis with WALT grade 1 flow. 6. Left ventriculography. A hand injection was performed in the left ventricle revealing normal wall motion and ejection fraction is 60%. CORONARY INTERVENTION: The patient had received a total of 5000 units of heparin and additional 1000 units of heparin was administered as the ACT was only 224 seconds. The left coronary bypass guide catheter was utilized and attempts were made to cross the lesion in the obtuse marginal graft with the use of a [place] wire through a 2.5 mm balloon. This was unsuccessful. Subsequently, a Cross-it wire was then taken and advanced into the vein graft and successfully crossed into the [place] obtuse marginal. Following this, a 2.5-mm balloon was advanced and inflated to 8 atmospheres. The balloon was then removed and a 3.0 x 15 mm Resolute Liang drug-eluting stent was advanced into the distal obtuse marginal graft and extended partially into the [place] obtuse marginal. This was inflated to 12 atmospheres for 45 seconds. Following this, a 3.5/8 mm NC balloon was then taken and advanced into the body of the stent within the graft segment, the stent was then withdrawn to the very edge of the stent and additional inflation performed to 14 atmospheres for 30 seconds. There was 0% residual stenosis following the intervention. WALT grade 3 flow was reestablished. RIGHT FEMORAL ARTERIOGRAPHY: Right femoral arteriogram revealed the puncture site to be at the bifurcation of the SFA and profunda branches. There was evidence of calcific disease at both sites. The puncture site was then closed with deployment of a Mynx device. CONCLUSION: 1. Occluded left main and RCA. 2. Severe anastomotic lesion involving saphenous vein graft of obtuse marginal. 3. Normal LV function. 4. Patent RCA and left internal mammary artery bypasses. 5. Successful PCI of saphenous vein graft to obtuse marginal with drug-eluting stent as described above. RECOMMENDATIONS: The patient will be maintained on the aspirin and Plavix for at least 1 year. Continued risk factor control have been advised. Serial enzymes would be obtained. Echocardiogram has been ordered as well. Further plans will be based upon his clinical course. Babak Flowers MD [facility]
[2018-07-09 01:25] LABS: CK MB% 7.5 % (2.5-3.0); CK-MB 84.2 ng/mL (0.0-3.6); TROPONIN I 30.5 ng/mL
[2018-07-09 06:45] LABS: BASO # 0.02 K/mm3 (0.0-2.0); BASO % 0.2 % (0.0-3.0); EOS % 0.4 % (1.5-5.0); HEMOGLOBIN 12.5 g/dL (14.0-18.0); LYMPH # 1.5 (1.2-3.4); LYMPH % 17.6 % (22.0-35.0); MEAN CELL VOLUME 95.1 fl (80.0-105.0); MEAN CORPUSCULAR HEMOGLOBIN 30.8 pg (25.0-35.0); MEAN CORPUSCULAR HGB CONC 32.4 g/dl (31.0-37.0); MEAN PLATELET VOLUME 10.3 fl (7.0-11.0); MONO # 0.9 (0.1-0.6); MONO % 11.2 % (1.0-6.0); RBC 4.06 10^6/uL (3.5-6.1); RED CELL DISTRIBUTION WIDTH 14.1 % (11.5-14.5); WHITE BLOOD COUNT 8.4 10^3/uL (4.5-11.0)
[2018-07-09 07:35] LABS: BLOOD UREA NITROGEN 15 mg/dL (7-21); CALCIUM 8.5 mg/dL (8.4-10.5); GFR NON-AFRICAN AMERICAN > 60
[2018-07-09 08:12] LABS: TROPONIN I 15.7 ng/mL
[2018-07-09 08:26] LABS: CK MB% 7.8 % (2.5-3.0); CK-MB 65.2 ng/mL (0.0-3.6)
--- NOTE | 2018-07-09 08:40 | CP.CCUPN ---
<Jeffery Siddiqui - Last Filed: 07/09/18 12:57> CCU Subjective - Physician Review Subjective (Free Text): 07/09/18 10:37 Jeffery Siddiqui, PGY-1 ICU Consult Note for Dr. Huynh Pt was seen and examined this AM at bedside. Pt had 1 DONALD placed in the SVG to OM. Pt states that today he has no chest pain today and that he has no acute complaints. Pt is oxygenating well on room air. Pt is also noted to be in junctional rhythm with HR in high 50s. CCU Objective - Vital Signs / Intake & Output Vital Signs (Last 4 hours): Vital Signs Pulse Resp BP Pulse Ox 07/09/18 06:50 53 L 56 H 95 07/09/18 06:40 53 L 23 95 07/09/18 06:30 53 L 14 95 07/09/18 06:20 56 L 34 H 94 L 07/09/18 06:10 55 L 96 07/09/18 06:00 53 L 23 123/80 90 L 07/09/18 05:50 53 L 25 H 95 07/09/18 05:40 56 L 18 94 L 07/09/18 05:30 53 L 19 90 L 07/09/18 05:20 52 L 14 94 L 07/09/18 05:10 52 L 92 L 07/09/18 05:00 61 21 110/62 92 L 07/09/18 04:50 54 L 24 91 L Intake and Output (Last 8hrs): Intake & Output 07/08/18 07/09/18 07/09/18 22:59 06:59 14:59 Intake Total 300 1450 Output Total 280 700 Balance 20 750 Weight 231 lb 9.6 oz Intake: IV 300 1200 Right Wrist 300 1200 Oral 250 Output: Urine 280 700 Urine, Voided 280 700 Other: Voiding Method Urinal # Voids Urine, Voided 1 # Bowel Movements 0 - Physical Exam Head: Positive for: Atraumatic, Normocephalic Pupils: Positive for: PERRL Extroacular Muscles: Positive for: EOMI Conjunctiva: Positive for: Normal Neck: Positive for: Normal Range of Motion Respiratory/Chest: Positive for: Clear to Auscultation, Good Air Exchange. Negative for: Respiratory Distress, Accessory Muscle Use Cardiovascular: Positive for: Normal S1, S2, Bradycardic. Negative for: Murmurs Abdomen: Negative for: Tenderness, Distention, Peritoneal Signs Back: Positive for: Normal Inspection Upper Extremity: Positive for: Normal Inspection. Negative for: Cyanosis, Edema Lower Extremity: Positive for: Normal Inspection. Negative for: Edema Neurological: Positive for: GCS=15, CN II-XII Intact, Speech Normal Skin: Positive for: Warm, Dry, Normal Color. Negative for: Rashes Psychiatric: Positive for: Alert, Oriented x 3, Normal Insight, Normal Concentration - Medications Active Medications: Active Medications Generic Name Dose Route Start Last Admin Trade Name Freq PRN Reason Stop Dose Admin Acetaminophen 650 mg 07/08/18 16:07 Tylenol 325mg Tab PO Q4H PRN Pain, Mild (1-3) Alprazolam 0.25 mg 07/08/18 16:07 07/08/18 22:06 Xanax PO 07/15/18 16:08 0.25 mg BID PRN Administration Anxiety Aspirin 81 mg 07/09/18 10:00 Ecotrin PO DAILY [facility] Atorvastatin Calcium 80 mg 07/08/18 17:00 07/08/18 17:56 Lipitor PO Not Given DIN [facility] Clopidogrel Bisulfate 75 mg 07/09/18 10:00 Plavix PO DAILY [facility] Docusate Sodium 100 mg 07/08/18 18:00 Colace PO BID [facility] Metoprolol Succinate 50 mg 07/09/18 10:00 Toprol Xl PO DAILY [facility] Ondansetron HCl 4 mg 07/08/18 16:07 Zofran Inj IV ONCE PRN Nausea/Vomiting Zolpidem Tartrate 5 mg 07/08/18 16:07 Ambien PO HS PRN Insomnia - Patient Studies Lab Studies: Lab Studies 07/09/18 07/09/18 07/09/18 Range/Units 07:00 05:40 05:40 WBC 8.4 (4.5-11.0) 10^3/uL RBC 4.06 (3.5-6.1) 10^6/uL Hgb 12.5 L (14.0-18.0) g/dL Hct 38.6 L (42.0-52.0) % MCV 95.1 (80.0-105.0) fl MCH 30.8 (25.0-35.0) pg MCHC 32.4 (31.0-37.0) g/dl RDW 14.1 (11.5-14.5) % Plt Count 192 (120.0-450.0) 10^3/uL MPV 10.3 (7.0-11.0) fl Neut % (Auto) 70.6 H (50.0-68.0) % Lymph % (Auto) 17.6 L (22.0-35.0) % Swain % (Auto) 11.2 H (1.0-6.0) % Eos % (Auto) 0.4 L (1.5-5.0) % Baso % (Auto) 0.2 (0.0-3.0) % Lymph # (Auto) 1.5 (1.2-3.4) Swain # (Auto) 0.9 H (0.1-0.6) Eos # (Auto) 0.0 (0.0-0.7) Baso # (Auto) 0.02 (0.0-2.0) K/mm3 Absolute Neuts (auto) 5.91 (1.4-6.5) PT (9.4-12.5) SECONDS INR APTT (26.9-38.3) Seconds Sodium 140 (132-148) mmol/L Potassium 4.4 (3.6-5.0) mmol/L Chloride 110 H (98-107) mmol/L Carbon Dioxide 26 (21-33) mmol/L Anion Gap 8 L (10-20) BUN 15 (7-21) mg/dL Creatinine 0.8 (0.8-1.5) mg/dl Est GFR ( Amer) > 60 Est GFR (Non-Af Amer) > 60 Random Glucose 104 (70-110) mg/dL Calcium 8.5 (8.4-10.5) mg/dL Total Bilirubin (0.2-1.3) mg/dL AST (17-59) U/L ALT (7-56) U/L Alkaline Phosphatase (38-126) U/L Lactate Dehydrogenase 967 H (333-699) U/L Total Creatine Kinase 835 H (35-230) U/L CK-MB (CK-2) 65.2 H (0.0-3.6) ng/mL CK-MB (CK-2) % 7.8 H (2.5-3.0) % Troponin I 15.70 H* D ng/mL Total Protein (5.8-8.3) g/dL Albumin (3.0-4.8) g/dL Globulin gm/dL Albumin/Globulin Ratio (1.1-1.8) Triglycerides 105 (35-160) mg/dL Cholesterol 121 L (130-200) mg/dL LDL Cholesterol Direct 74 (0-129) mg/dL HDL Cholesterol 36 (29-60) mg/dL Blood Type Antibody Screen BBK History Checked 07/09/18 07/08/18 07/08/18 Range/Units 00:30 18:30 14:45 WBC (4.5-11.0) 10^3/uL RBC (3.5-6.1) 10^6/uL Hgb (14.0-18.0) g/dL Hct (42.0-52.0) % MCV (80.0-105.0) fl MCH (25.0-35.0) pg MCHC (31.0-37.0) g/dl RDW (11.5-14.5) % Plt Count (120.0-450.0) 10^3/uL MPV (7.0-11.0) fl Neut % (Auto) (50.0-68.0) % Lymph % (Auto) (22.0-35.0) % Swain % (Auto) (1.0-6.0) % Eos % (Auto) (1.5-5.0) % Baso % (Auto) (0.0-3.0) % Lymph # (Auto) (1.2-3.4) Swain # (Auto) (0.1-0.6) Eos # (Auto) (0.0-0.7) Baso # (Auto) (0.0-2.0) K/mm3 Absolute Neuts (auto) (1.4-6.5) PT (9.4-12.5) SECONDS INR APTT (26.9-38.3) Seconds Sodium (132-148) mmol/L Potassium (3.6-5.0) mmol/L Chloride (98-107) mmol/L Carbon Dioxide (21-33) mmol/L Anion Gap (10-20) BUN (7-21) mg/dL Creatinine (0.8-1.5) mg/dl Est GFR ( Amer) Est GFR (Non-Af Amer) Random Glucose (70-110) mg/dL Calcium (8.4-10.5) mg/dL Total Bilirubin (0.2-1.3) mg/dL AST (17-59) U/L ALT (7-56) U/L Alkaline Phosphatase (38-126) U/L Lactate Dehydrogenase 934 H 753 H (333-699) U/L Total Creatine Kinase 1116 H 1003 H (35-230) U/L CK-MB (CK-2) 84.2 H 70.4 H (0.0-3.6) ng/mL CK-MB (CK-2) % 7.5 H 7.0 H (2.5-3.0) % Troponin I 30.50 H* D 7.46 H* D ng/mL Total Protein (5.8-8.3) g/dL Albumin (3.0-4.8) g/dL Globulin gm/dL Albumin/Globulin Ratio (1.1-1.8) Triglycerides (35-160) mg/dL Cholesterol (130-200) mg/dL LDL Cholesterol Direct (0-129) mg/dL HDL Cholesterol (29-60) mg/dL Blood Type A POSITIVE Antibody Screen Negative BBK History Checked Patient has bt 07/08/18 07/08/18 07/08/18 Range/Units 14:30 14:30 14:30 WBC 10.0 D (4.5-11.0) 10^3/uL RBC 4.36 (3.5-6.1) 10^6/uL Hgb 13.7 L (14.0-18.0) g/dL Hct 41.2 L (42.0-52.0) % MCV 94.5 (80.0-105.0) fl MCH 31.4 (25.0-35.0) pg MCHC 33.3 (31.0-37.0) g/dl RDW 13.9 (11.5-14.5) % Plt Count 216 (120.0-450.0) 10^3/uL MPV 10.1 (7.0-11.0) fl Neut % (Auto) 83.7 H (50.0-68.0) % Lymph % (Auto) 11.0 L (22.0-35.0) % Swain % (Auto) 5.0 (1.0-6.0) % Eos % (Auto) 0.1 L (1.5-5.0) % Baso % (Auto) 0.2 (0.0-3.0) % Lymph # (Auto) 1.1 L (1.2-3.4) Swain # (Auto) 0.5 (0.1-0.6) Eos # (Auto) 0.0 (0.0-0.7) Baso # (Auto) 0.02 (0.0-2.0) K/mm3 Absolute Neuts (auto) 8.40 H (1.4-6.5) PT 12.0 (9.4-12.5) SECONDS INR 1.08 APTT 32.3 (26.9-38.3) Seconds Sodium 139 (132-148) mmol/L Potassium 4.4 (3.6-5.0) mmol/L Chloride 108 H (98-107) mmol/L Carbon Dioxide 22 (21-33) mmol/L Anion Gap 13 (10-20) BUN 22 H (7-21) mg/dL Creatinine 0.9 (0.8-1.5) mg/dl Est GFR ( Amer) > 60 Est GFR (Non-Af Amer) > 60 Random Glucose 143 H (70-110) mg/dL Calcium 9.5 (8.4-10.5) mg/dL Total Bilirubin 0.4 (0.2-1.3) mg/dL AST 47 (17-59) U/L ALT 40 (7-56) U/L Alkaline Phosphatase 74 (38-126) U/L Lactate Dehydrogenase (333-699) U/L Total Creatine Kinase (35-230) U/L CK-MB (CK-2) (0.0-3.6) ng/mL CK-MB (CK-2) % (2.5-3.0) % Troponin I 0.24 H* D ng/mL Total Protein 7.6 (5.8-8.3) g/dL Albumin 4.3 (3.0-4.8) g/dL Globulin 3.3 gm/dL Albumin/Globulin Ratio 1.3 (1.1-1.8) Triglycerides (35-160) mg/dL Cholesterol (130-200) mg/dL LDL Cholesterol Direct (0-129) mg/dL HDL Cholesterol (29-60) mg/dL Blood Type Antibody Screen BBK History Checked Laboratory Results - last 24 hr 07/08/18 07/08/18 07/08/18 14:30 14:30 14:30 WBC 10.0 D RBC 4.36 Hgb 13.7 L Hct 41.2 L MCV 94.5 MCH 31.4 MCHC 33.3 RDW 13.9 Plt Count 216 MPV 10.1 Neut % (Auto) 83.7 H Lymph % (Auto) 11.0 L Swain % (Auto) 5.0 Eos % (Auto) 0.1 L Baso % (Auto) 0.2 Lymph # (Auto) 1.1 L Swain # (Auto) 0.5 Eos # (Auto) 0.0 Baso # (Auto) 0.02 Absolute Neuts (auto) 8.40 H PT 12.0 INR 1.08 APTT 32.3 Sodium 139 Potassium 4.4 Chloride 108 H Carbon Dioxide 22 Anion Gap 13 BUN 22 H Creatinine 0.9 Est GFR ( Amer) > 60 Est GFR (Non-Af Amer) > 60 Random Glucose 143 H Calcium 9.5 Total Bilirubin 0.4 AST 47 ALT 40 Alkaline Phosphatase 74 Lactate Dehydrogenase Total Creatine Kinase CK-MB (CK-2) CK-MB (CK-2) % Troponin I 0.24 H* D Total Protein 7.6 Albumin 4.3 Globulin 3.3 Albumin/Globulin Ratio 1.3 Triglycerides Cholesterol LDL Cholesterol Direct HDL Cholesterol Blood Type Antibody Screen BBK History Checked 07/08/18 07/08/18 07/09/18 14:45 18:30 00:30 WBC RBC Hgb Hct MCV MCH MCHC RDW Plt Count MPV Neut % (Auto) Lymph % (Auto) Swain % (Auto) Eos % (Auto) Baso % (Auto) Lymph # (Auto) Swain # (Auto) Eos # (Auto) Baso # (Auto) Absolute Neuts (auto) PT INR APTT Sodium Potassium Chloride Carbon Dioxide Anion Gap BUN Creatinine Est GFR ( Amer) Est GFR (Non-Af Amer) Random Glucose Calcium Total Bilirubin AST ALT Alkaline Phosphatase Lactate Dehydrogenase 753 H 934 H Total Creatine Kinase 1003 H 1116 H CK-MB (CK-2) 70.4 H 84.2 H CK-MB (CK-2) % 7.0 H 7.5 H Troponin I 7.46 H* D 30.50 H* D Total Protein Albumin Globulin Albumin/Globulin Ratio Triglycerides Cholesterol LDL Cholesterol Direct HDL Cholesterol Blood Type A POSITIVE Antibody Screen Negative BBK History Checked Patient has bt 07/09/18 07/09/18 07/09/18 05:40 05:40 07:00 WBC 8.4 RBC 4.06 Hgb 12.5 L Hct 38.6 L MCV 95.1 MCH 30.8 MCHC 32.4 RDW 14.1 Plt Count 192 MPV 10.3 Neut % (Auto) 70.6 H Lymph % (Auto) 17.6 L Swain % (Auto) 11.2 H Eos % (Auto) 0.4 L Baso % (Auto) 0.2 Lymph # (Auto) 1.5 Swain # (Auto) 0.9 H Eos # (Auto) 0.0 Baso # (Auto) 0.02 Absolute Neuts (auto) 5.91 PT INR APTT Sodium 140 Potassium 4.4 Chloride 110 H Carbon Dioxide 26 Anion Gap 8 L BUN 15 Creatinine 0.8 Est GFR ( Amer) > 60 Est GFR (Non-Af Amer) > 60 Random Glucose 104 Calcium 8.5 Total Bilirubin AST ALT Alkaline Phosphatase Lactate Dehydrogenase 967 H Total Creatine Kinase 835 H CK-MB (CK-2) 65.2 H CK-MB (CK-2) % 7.8 H Troponin I 15.70 H* D Total Protein Albumin Globulin Albumin/Globulin Ratio Triglycerides 105 Cholesterol 121 L LDL Cholesterol Direct 74 HDL Cholesterol 36 Blood Type Antibody Screen BBK History Checked Radiology Impressions: Radiology Impressions Chest X-Ray 07/08/18 14:27 IMPRESSION: No active disease. EKG/Cardiology Studies: Cardiology / EKG Studies 07/08/18 14:28 ELECTROCARDIOGRAM Stat Comment: Reason For Exam: chest pain 07/08/18 16:07 ELECTROCARDIOGRAM Urgent Comment: 12 lead EKG upon arrival in unit Reason For Exam: post ptca 07/09/18 16:15 ELECTROCARDIOGRAM DAILY Comment: Reason For Exam: chest pain Critical Care Progress Note - Nutrition Nutrition: Nutrition Category Date Time Status Heart Healthy Diet [DIET] Diets 07/08/18 Dinner Active Assessment/Plan - Assessment and Plan (Free Text) Assessment: 63 yo M with PMH of CAD s/p CABG and multiple stents, HTN, HLD, and TIA presents to [facility] – [place], [place] with chest pain and dyspnea on exertion. Patient was found to have an NSTEMI and underwent cardiac catherization with DONALD placed from SVG to OM. Patient will be admitted to ICU s/p cardiac catherization for further monitoring. Pt had no acute events overnight. Plan: NSTEMI s/p cardiac catherization with 1 DONALD: - Pt noted not to have any acute events overnight - Per cardio, Dr. Flowers pt is cleared to be transfered from ICU to tele - As per cardio cont Asa, plavix, B-heydi and statin. - Primary team made aware, and agrees with transfer to tele. HTN: - Cont management as per primary HLD - Cont management as per primary PPx: DVT - Heparin sq Dispo: Pt is hemodynamically stable, VSS, tolerating diet and no longer requires ICU monitoring, will be transfered to tele. PMD made aware. <Freeman Huynh - Last Filed: 07/09/18 13:14> CCU Objective - Vital Signs / Intake & Output Vital Signs (Last 4 hours): Vital Signs Pulse BP 07/09/18 09:22 50 L 119/79 Intake and Output (Last 8hrs): Intake & Output 07/08/18 07/09/18 07/09/18 22:59 06:59 14:59 Intake Total 300 1450 Output Total 280 700 Balance 20 750 Weight 231 lb 9.6 oz Intake: IV 300 1200 Right Wrist 300 1200 Oral 250 Output: Urine 280 700 Urine, Voided 280 700 Other: Voiding Method Urinal # Voids Urine, Voided 1 # Bowel Movements 0 - Medications Active Medications: Active Medications Generic Name Dose Route Start Last Admin Trade Name Freq PRN Reason Stop Dose Admin Acetaminophen 650 mg 07/08/18 16:07 Tylenol 325mg Tab PO Q4H PRN Pain, Mild (1-3) Alprazolam 0.25 mg 07/08/18 16:07 07/08/18 22:06 Xanax PO 07/15/18 16:08 0.25 mg BID PRN Administration Anxiety Aspirin 81 mg 07/09/18 10:00 07/09/18 09:21 Ecotrin PO 81 mg DAILY [facility] Administration Atorvastatin Calcium 80 mg 07/08/18 17:00 07/08/18 17:56 Lipitor PO Not Given DIN [facility] Clopidogrel Bisulfate 75 mg 07/09/18 10:00 07/09/18 09:21 Plavix PO 75 mg DAILY [facility] Administration Docusate Sodium 100 mg 07/08/18 18:00 07/09/18 09:21 Colace PO 100 mg BID [facility] Administration Heparin Sodium (Porcine) 5,000 units 07/09/18 09:45 07/09/18 10:21 Heparin SC 5,000 units Q8 [facility] Administration Protocol Metoprolol Succinate 50 mg 07/09/18 10:00 07/09/18 09:22 Toprol Xl PO Not Given DAILY [facility] Ondansetron HCl 4 mg 07/08/18 16:07 Zofran Inj IV ONCE PRN Nausea/Vomiting Zolpidem Tartrate 5 mg 07/08/18 16:07 Ambien PO HS PRN Insomnia - Patient Studies Lab Studies: Lab Studies 07/09/18 07/09/18 07/09/18 Range/Units 07:00 05:40 05:40 WBC 8.4 (4.5-11.0) 10^3/uL RBC 4.06 (3.5-6.1) 10^6/uL Hgb 12.5 L (14.0-18.0) g/dL Hct 38.6 L (42.0-52.0) % MCV 95.1 (80.0-105.0) fl MCH 30.8 (25.0-35.0) pg MCHC 32.4 (31.0-37.0) g/dl RDW 14.1 (11.5-14.5) % Plt Count 192 (120.0-450.0) 10^3/uL MPV 10.3 (7.0-11.0) fl Neut % (Auto) 70.6 H (50.0-68.0) % Lymph % (Auto) 17.6 L (22.0-35.0) % Swain % (Auto) 11.2 H (1.0-6.0) % Eos % (Auto) 0.4 L (1.5-5.0) % Baso % (Auto) 0.2 (0.0-3.0) % Lymph # (Auto) 1.5 (1.2-3.4) Swain # (Auto) 0.9 H (0.1-0.6) Eos # (Auto) 0.0 (0.0-0.7) Baso # (Auto) 0.02 (0.0-2.0) K/mm3 Absolute Neuts (auto) 5.91 (1.4-6.5) PT (9.4-12.5) SECONDS INR APTT (26.9-38.3) Seconds Sodium 140 (132-148) mmol/L Potassium 4.4 (3.6-5.0) mmol/L Chloride 110 H (98-107) mmol/L Carbon Dioxide 26 (21-33) mmol/L Anion Gap 8 L (10-20) BUN 15 (7-21) mg/dL Creatinine 0.8 (0.8-1.5) mg/dl Est GFR ( Amer) > 60 Est GFR (Non-Af Amer) > 60 Random Glucose 104 (70-110) mg/dL Calcium 8.5 (8.4-10.5) mg/dL Total Bilirubin (0.2-1.3) mg/dL AST (17-59) U/L ALT (7-56) U/L Alkaline Phosphatase (38-126) U/L Lactate Dehydrogenase 967 H (333-699) U/L Total Creatine Kinase 835 H (35-230) U/L CK-MB (CK-2) 65.2 H (0.0-3.6) ng/mL CK-MB (CK-2) % 7.8 H (2.5-3.0) % Troponin I 15.70 H* D ng/mL Total Protein (5.8-8.3) g/dL Albumin (3.0-4.8) g/dL Globulin gm/dL Albumin/Globulin Ratio (1.1-1.8) Triglycerides 105 (35-160) mg/dL Cholesterol 121 L (130-200) mg/dL LDL Cholesterol Direct 74 (0-129) mg/dL HDL Cholesterol 36 (29-60) mg/dL Blood Type Antibody Screen BBK History Checked 07/09/18 07/08/18 07/08/18 Range/Units 00:30 18:30 14:45 WBC (4.5-11.0) 10^3/uL RBC (3.5-6.1) 10^6/uL Hgb (14.0-18.0) g/dL Hct (42.0-52.0) % MCV (80.0-105.0) fl MCH (25.0-35.0) pg MCHC (31.0-37.0) g/dl RDW (11.5-14.5) % Plt Count (120.0-450.0) 10^3/uL MPV (7.0-11.0) fl Neut % (Auto) (50.0-68.0) % Lymph % (Auto) (22.0-35.0) % Swain % (Auto) (1.0-6.0) % Eos % (Auto) (1.5-5.0) % Baso % (Auto) (0.0-3.0) % Lymph # (Auto) (1.2-3.4) Swain # (Auto) (0.1-0.6) Eos # (Auto) (0.0-0.7) Baso # (Auto) (0.0-2.0) K/mm3 Absolute Neuts (auto) (1.4-6.5) PT (9.4-12.5) SECONDS INR APTT (26.9-38.3) Seconds Sodium (132-148) mmol/L Potassium (3.6-5.0) mmol/L Chloride (98-107) mmol/L Carbon Dioxide (21-33) mmol/L Anion Gap (10-20) BUN (7-21) mg/dL Creatinine (0.8-1.5) mg/dl Est GFR ( Amer) Est GFR (Non-Af Amer) Random Glucose (70-110) mg/dL Calcium (8.4-10.5) mg/dL Total Bilirubin (0.2-1.3) mg/dL AST (17-59) U/L ALT (7-56) U/L Alkaline Phosphatase (38-126) U/L Lactate Dehydrogenase 934 H 753 H (333-699) U/L Total Creatine Kinase 1116 H 1003 H (35-230) U/L CK-MB (CK-2) 84.2 H 70.4 H (0.0-3.6) ng/mL CK-MB (CK-2) % 7.5 H 7.0 H (2.5-3.0) % Troponin I 30.50 H* D 7.46 H* D ng/mL Total Protein (5.8-8.3) g/dL Albumin (3.0-4.8) g/dL Globulin gm/dL Albumin/Globulin Ratio (1.1-1.8) Triglycerides (35-160) mg/dL Cholesterol (130-200) mg/dL LDL Cholesterol Direct (0-129) mg/dL HDL Cholesterol (29-60) mg/dL Blood Type A POSITIVE Antibody Screen Negative BBK History Checked Patient has bt 07/08/18 07/08/18 07/08/18 Range/Units 14:30 14:30 14:30 WBC 10.0 D (4.5-11.0) 10^3/uL RBC 4.36 (3.5-6.1) 10^6/uL Hgb 13.7 L (14.0-18.0) g/dL Hct 41.2 L (42.0-52.0) % MCV 94.5 (80.0-105.0) fl MCH 31.4 (25.0-35.0) pg MCHC 33.3 (31.0-37.0) g/dl RDW 13.9 (11.5-14.5) % Plt Count 216 (120.0-450.0) 10^3/uL MPV 10.1 (7.0-11.0) fl Neut % (Auto) 83.7 H (50.0-68.0) % Lymph % (Auto) 11.0 L (22.0-35.0) % Swain % (Auto) 5.0 (1.0-6.0) % Eos % (Auto) 0.1 L (1.5-5.0) % Baso % (Auto) 0.2 (0.0-3.0) % Lymph # (Auto) 1.1 L (1.2-3.4) Swain # (Auto) 0.5 (0.1-0.6) Eos # (Auto) 0.0 (0.0-0.7) Baso # (Auto) 0.02 (0.0-2.0) K/mm3 Absolute Neuts (auto) 8.40 H (1.4-6.5) PT 12.0 (9.4-12.5) SECONDS INR 1.08 APTT 32.3 (26.9-38.3) Seconds Sodium 139 (132-148) mmol/L Potassium 4.4 (3.6-5.0) mmol/L Chloride 108 H (98-107) mmol/L Carbon Dioxide 22 (21-33) mmol/L Anion Gap 13 (10-20) BUN 22 H (7-21) mg/dL Creatinine 0.9 (0.8-1.5) mg/dl Est GFR ( Amer) > 60 Est GFR (Non-Af Amer) > 60 Random Glucose 143 H (70-110) mg/dL Calcium 9.5 (8.4-10.5) mg/dL Total Bilirubin 0.4 (0.2-1.3) mg/dL AST 47 (17-59) U/L ALT 40 (7-56) U/L Alkaline Phosphatase 74 (38-126) U/L Lactate Dehydrogenase (333-699) U/L Total Creatine Kinase (35-230) U/L CK-MB (CK-2) (0.0-3.6) ng/mL CK-MB (CK-2) % (2.5-3.0) % Troponin I 0.24 H* D ng/mL Total Protein 7.6 (5.8-8.3) g/dL Albumin 4.3 (3.0-4.8) g/dL Globulin 3.3 gm/dL Albumin/Globulin Ratio 1.3 (1.1-1.8) Triglycerides (35-160) mg/dL Cholesterol (130-200) mg/dL LDL Cholesterol Direct (0-129) mg/dL HDL Cholesterol (29-60) mg/dL Blood Type Antibody Screen BBK History Checked Laboratory Results - last 24 hr 07/08/18 07/08/18 07/08/18 14:30 14:30 14:30 WBC 10.0 D RBC 4.36 Hgb 13.7 L Hct 41.2 L MCV 94.5 MCH 31.4 MCHC 33.3 RDW 13.9 Plt Count 216 MPV 10.1 Neut % (Auto) 83.7 H Lymph % (Auto) 11.0 L Swain % (Auto) 5.0 Eos % (Auto) 0.1 L Baso % (Auto) 0.2 Lymph # (Auto) 1.1 L Swain # (Auto) 0.5 Eos # (Auto) 0.0 Baso # (Auto) 0.02 Absolute Neuts (auto) 8.40 H PT 12.0 INR 1.08 APTT 32.3 Sodium 139 Potassium 4.4 Chloride 108 H Carbon Dioxide 22 Anion Gap 13 BUN 22 H Creatinine 0.9 Est GFR ( Amer) > 60 Est GFR (Non-Af Amer) > 60 Random Glucose 143 H Calcium 9.5 Total Bilirubin 0.4 AST 47 ALT 40 Alkaline Phosphatase 74 Lactate Dehydrogenase Total Creatine Kinase CK-MB (CK-2) CK-MB (CK-2) % Troponin I 0.24 H* D Total Protein 7.6 Albumin 4.3 Globulin 3.3 Albumin/Globulin Ratio 1.3 Triglycerides Cholesterol LDL Cholesterol Direct HDL Cholesterol Blood Type Antibody Screen BBK History Checked 07/08/18 07/08/18 07/09/18 14:45 18:30 00:30 WBC RBC Hgb Hct MCV MCH MCHC RDW Plt Count MPV Neut % (Auto) Lymph % (Auto) Swain % (Auto) Eos % (Auto) Baso % (Auto) Lymph # (Auto) Swain # (Auto) Eos # (Auto) Baso # (Auto) Absolute Neuts (auto) PT INR APTT Sodium Potassium Chloride Carbon Dioxide Anion Gap BUN Creatinine Est GFR ( Amer) Est GFR (Non-Af Amer) Random Glucose Calcium Total Bilirubin AST ALT Alkaline Phosphatase Lactate Dehydrogenase 753 H 934 H Total Creatine Kinase 1003 H 1116 H CK-MB (CK-2) 70.4 H 84.2 H CK-MB (CK-2) % 7.0 H 7.5 H Troponin I 7.46 H* D 30.50 H* D Total Protein Albumin Globulin Albumin/Globulin Ratio Triglycerides Cholesterol LDL Cholesterol Direct HDL Cholesterol Blood Type A POSITIVE Antibody Screen Negative BBK History Checked Patient has bt 07/09/18 07/09/18 07/09/18 05:40 05:40 07:00 WBC 8.4 RBC 4.06 Hgb 12.5 L Hct 38.6 L MCV 95.1 MCH 30.8 MCHC 32.4 RDW 14.1 Plt Count 192 MPV 10.3 Neut % (Auto) 70.6 H Lymph % (Auto) 17.6 L Swain % (Auto) 11.2 H Eos % (Auto) 0.4 L Baso % (Auto) 0.2 Lymph # (Auto) 1.5 Swain # (Auto) 0.9 H Eos # (Auto) 0.0 Baso # (Auto) 0.02 Absolute Neuts (auto) 5.91 PT INR APTT Sodium 140 Potassium 4.4 Chloride 110 H Carbon Dioxide 26 Anion Gap 8 L BUN 15 Creatinine 0.8 Est GFR ( Amer) > 60 Est GFR (Non-Af Amer) > 60 Random Glucose 104 Calcium 8.5 Total Bilirubin AST ALT Alkaline Phosphatase Lactate Dehydrogenase 967 H Total Creatine Kinase 835 H CK-MB (CK-2) 65.2 H CK-MB (CK-2) % 7.8 H Troponin I 15.70 H* D Total Protein Albumin Globulin Albumin/Globulin Ratio Triglycerides 105 Cholesterol 121 L LDL Cholesterol Direct 74 HDL Cholesterol 36 Blood Type Antibody Screen BBK History Checked Radiology Impressions: Radiology Impressions Chest X-Ray 07/08/18 14:27 IMPRESSION: No active disease. EKG/Cardiology Studies: Cardiology / EKG Studies 07/08/18 14:28 ELECTROCARDIOGRAM Stat Comment: Reason For Exam: chest pain 07/08/18 16:07 ELECTROCARDIOGRAM Urgent Comment: 12 lead EKG upon arrival in unit Reason For Exam: post ptca 07/09/18 16:15 ELECTROCARDIOGRAM DAILY Comment: Reason For Exam: chest pain 07/10/18 06:00 EKG [ELECTROCARDIOGRAM] Routine Comment: Reason For Exam: [place] Critical Care Progress Note - Nutrition Nutrition: Nutrition Category Date Time Status Heart Healthy Diet [DIET] Diets 07/08/18 Dinner Active Assessment/Plan - Assessment and Plan (Free Text) Plan: Patient seen and examined on rounds, with resident, agree with note with following additions/exceptions: Patient is 63yo male with PMH of CAD s/p CABG and multiple stents, HTN, HLD, and TIA presents to [facility] – [place] with chest pain and CARRILLO. Patient was found to have an NSTEMI and underwent cardiac catherization with DONALD placed from SVG to OM. Currently afebrile, BP stable, comfortable in NAD, no major complaints Labs, imaging, chart reviewed Troponin downtrending Clinically overall doing well Cont with ASA, Plavix, Statin, BB if tolerated ECHO Follow up cardio Check lipid panel TSH, HgbA1C GI ppx DVT ppx Transfer to tele, stable
[2018-07-09] MEDS: Metoprolol Succinate 50 mg XL Tab PO SCH (09:22)
--- NOTE | 2018-07-09 09:35 | CARD ---
APPROVED REPORT Date of service: 07/08/2018 EKG Measurement Heart [id number] <Conclusion> Marked sinus bradycardia with 1st degree AV block ST & T wave abnormality, consider anterolateral ischemia Abnormal ECG
--- NOTE | 2018-07-09 09:37 | CARD ---
APPROVED REPORT Date of service: 07/08/2018 EKG Measurement Heart [id number] [id number] <Conclusion> Poor data quality, interpretation may be adversely affected Normal sinus rhythm Posterior infarct, age undetermined Inferior injury pattern ACUTE ID Consider right ventricular involvement in acute inferior infarct Abnormal ECG
--- NOTE | 2018-07-09 12:59 | CP.PCM.HP ---
History of Present Illness - History of Present Illness History of Present Illness: H&P for Dr. Morrison: Chief complaint: Chest pain 63-year-old male with past medical history of coronary artery disease status post CABG and stent placement, hypertension, hyperlipidemia, TIA presents with left-sided chest pain and dyspnea on exertion. Patient states the chest pain was substernal and radiating to his left arm. Patient states that his symptoms have been going on for a few days however he attributed it to a URI. Patient went to [employer] following a whole days of work and suddenly felt the severe chest pain. Patient states that the pain was similar to his prior heart attack. Pain is also attributed with shortness of breath that is worse with exertion. Patient denied any other complaints. 12 point ROS performed and negative other than stated above PMH: As above Surgery: CABG, inguinal hernia repair Allergies: Ciprofloxacin SH: Former smoker of 1-1/2 packs/day, quit over 30 years ago, social drinker and denies any drug use FH: Parents both with coronary artery disease Present on Admission - Present on Admission Any Indicators Present on Admission: No Review of Systems - Review of Systems All systems: reviewed and no additional remarkable complaints except Past Patient History - Infectious Disease Hx of Infectious Diseases: None - Tetanus Immunizations Tetanus Immunization: Unknown - Past Medical History & Family History Past Medical History?: Yes - Past Social History Smoking Status: Former Smoker - CARDIAC Hx Cardiac Disorders: (mi 2002 1 stent,CABG,CAD) Hx Angina: Yes Hx Hypertension: Yes Hx Internal Defibrillator: Yes Other/Comment: cardiac stent feb 2014, triple bypass 1995,CARDIAC STENT 07-08-18 - PULMONARY Hx Respiratory Disorders: No - NEUROLOGICAL Hx Neurological Disorder: Yes Hx Transient Ischemic Attacks (TIA): Yes (December 2013) - HEENT Hx HEENT Problems: Yes (deviated septum) - RENAL Hx Chronic Kidney Disease: No - ENDOCRINE/METABOLIC Hx Endocrine Disorders: No - HEMATOLOGICAL/ONCOLOGICAL Hx Blood Disorders: No - INTEGUMENTARY Hx Dermatological Problems: No - MUSCULOSKELETAL/RHEUMATOLOGICAL Hx Musculoskeletal Disorders: Yes Hx Back Pain: Yes Hx Falls: No - GASTROINTESTINAL Hx Gastrointestinal Disorders: Yes (CONSTIPATION) - GENITOURINARY/GYNECOLOGICAL Hx Genitourinary Disorders: No - PSYCHIATRIC Hx Emotional Abuse: No Hx Physical Abuse: No Hx Substance Use: No - SURGICAL HISTORY Hx Surgeries: Yes (LEFT INGUINAL HERNIA REPARI,CARD STENTS X 2) Hx Cardiac Catheterization: Yes Hx Coronary Stent: Yes (February 2014 x1) Hx Open Heart Surgery: Yes Other/Comment: L DEVIATED SEPTUM REPAIR - ANESTHESIA Hx Anesthesia Reactions: No Hx Malignant Hyperthermia: No Meds Allergies/Adverse Reactions: Allergies Allergy/AdvReac Type Severity Reaction Status Date / Time ciprofloxacin Allergy RASH Verified 07/08/18 20:14 Physical Exam - Constitutional Appears: No Acute Distress - Head Exam Head Exam: ATRAUMATIC, NORMOCEPHALIC - Eye Exam Eye Exam: EOMI - ENT Exam ENT Exam: Mucous Membranes Moist - Respiratory Exam Respiratory Exam: Clear to Auscultation Bilateral. absent: Wheezes - Cardiovascular Exam Cardiovascular Exam: REGULAR RHYTHM, RRR, +S1, +S2 - GI/Abdominal Exam GI & Abdominal Exam: Normal Bowel Sounds, Soft. absent: Tenderness - Extremities Exam Extremities exam: Negative for: calf tenderness, pedal edema - Neurological Exam Neurological exam: Alert, CN II-XII Intact, Oriented x3 - Psychiatric Exam Psychiatric exam: Normal Mood - Skin Skin Exam: Dry, Warm Results - Vital Signs Recent Vital Signs: Last Vital Signs Temp 97.9 F 07/09/18 08:00 Pulse 50 L 07/09/18 09:22 Resp 20 07/09/18 08:50 BP 119/79 07/09/18 09:22 Pulse Ox 93 L 07/09/18 08:50 - Labs Result Diagrams: 07/09/18 05:40 07/09/18 05:40 Labs: Laboratory Results - last 24 hr 07/08/18 07/08/18 07/08/18 14:30 14:30 14:30 WBC 10.0 D RBC 4.36 Hgb 13.7 L Hct 41.2 L MCV 94.5 MCH 31.4 MCHC 33.3 RDW 13.9 Plt Count 216 MPV 10.1 Neut % (Auto) 83.7 H Lymph % (Auto) 11.0 L [place] % (Auto) 5.0 Eos % (Auto) 0.1 L Baso % (Auto) 0.2 Lymph # (Auto) 1.1 L [place] # (Auto) 0.5 Eos # (Auto) 0.0 Baso # (Auto) 0.02 Absolute Neuts (auto) 8.40 H PT 12.0 INR 1.08 APTT 32.3 Sodium 139 Potassium 4.4 Chloride 108 H Carbon Dioxide 22 Anion Gap 13 BUN 22 H Creatinine 0.9 Est GFR ( Amer) > 60 Est GFR (Non-Af Amer) > 60 Random Glucose 143 H Calcium 9.5 Total Bilirubin 0.4 AST 47 ALT 40 Alkaline Phosphatase 74 Lactate Dehydrogenase Total Creatine Kinase CK-MB (CK-2) CK-MB (CK-2) % Troponin I 0.24 H* D Total Protein 7.6 Albumin 4.3 Globulin 3.3 Albumin/Globulin Ratio 1.3 Triglycerides Cholesterol LDL Cholesterol Direct HDL Cholesterol Blood Type Antibody Screen BBK History Checked 07/08/18 07/08/18 07/09/18 14:45 18:30 00:30 WBC RBC Hgb Hct MCV MCH MCHC RDW Plt Count MPV Neut % (Auto) Lymph % (Auto) [place] % (Auto) Eos % (Auto) Baso % (Auto) Lymph # (Auto) [place] # (Auto) Eos # (Auto) Baso # (Auto) Absolute Neuts (auto) PT INR APTT Sodium Potassium Chloride Carbon Dioxide Anion Gap BUN Creatinine Est GFR ( Amer) Est GFR (Non-Af Amer) Random Glucose Calcium Total Bilirubin AST ALT Alkaline Phosphatase Lactate Dehydrogenase 753 H 934 H Total Creatine Kinase 1003 H 1116 H CK-MB (CK-2) 70.4 H 84.2 H CK-MB (CK-2) % 7.0 H 7.5 H Troponin I 7.46 H* D 30.50 H* D Total Protein Albumin Globulin Albumin/Globulin Ratio Triglycerides Cholesterol LDL Cholesterol Direct HDL Cholesterol Blood Type A POSITIVE Antibody Screen Negative BBK History Checked Patient has bt 07/09/18 07/09/18 07/09/18 05:40 05:40 07:00 WBC 8.4 RBC 4.06 Hgb 12.5 L Hct 38.6 L MCV 95.1 MCH 30.8 MCHC 32.4 RDW 14.1 Plt Count 192 MPV 10.3 Neut % (Auto) 70.6 H Lymph % (Auto) 17.6 L [place] % (Auto) 11.2 H Eos % (Auto) 0.4 L Baso % (Auto) 0.2 Lymph # (Auto) 1.5 [place] # (Auto) 0.9 H Eos # (Auto) 0.0 Baso # (Auto) 0.02 Absolute Neuts (auto) 5.91 PT INR APTT Sodium 140 Potassium 4.4 Chloride 110 H Carbon Dioxide 26 Anion Gap 8 L BUN 15 Creatinine 0.8 Est GFR ( Amer) > 60 Est GFR (Non-Af Amer) > 60 Random Glucose 104 Calcium 8.5 Total Bilirubin AST ALT Alkaline Phosphatase Lactate Dehydrogenase 967 H Total Creatine Kinase 835 H CK-MB (CK-2) 65.2 H CK-MB (CK-2) % 7.8 H Troponin I 15.70 H* D Total Protein Albumin Globulin Albumin/Globulin Ratio Triglycerides 105 Cholesterol 121 L LDL Cholesterol Direct 74 HDL Cholesterol 36 Blood Type Antibody Screen BBK History Checked Assessment & Plan - Assessment and Plan (Free Text) Assessment: 1. ACS status post PCI placement with drug-eluting stent 2. Hypertension 3. Hyperlipidemia 4. TIA Patient had acute chest pain. Troponins were elevated from 0.2->7->30. EKG showed normal sinus rhythm with age-indeterminate acute infarct in the inferior and possible posterior leads. Cardiology was consulted and was taken for an emergent cardiac catheterization with PCI of saphenous vein graft to obtuse marginal placed. For his ACS we will continue aspirin and Plavix. Follow-up echo. For his hypertension and ACS we will continue with metoprolol. For his hyperlipidemia we will continue Lipitor high intensity 80 mg/day. Will follow up with further cardiology recommendations. Lifestyle changes including diet and exercise was encouraged. We will continue to monitor. Case and plan was reviewed and discussed with Dr. Morrison.
--- NOTE | 2018-07-09 13:00 | PN ---
DATE: 07/09/2018 SUBJECTIVE: The patient is seen sitting in chair and in the CCU. He feels significantly better. He has had no recurrent chest pain overnight. His troponin peaked at 30.5, this morning it is 17.5. He otherwise feels well. CURRENT MEDICATIONS: Include aspirin, Plavix, subcutaneous heparin, Lipitor 80 mg daily, Toprol XL 50 mg daily. OBJECTIVE: GENERAL: He is a middle-aged man who appears comfortable at present time. VITAL SIGNS: Blood pressure is 120/80 with a pulse of 50 and sinus respirations 16. He is afebrile. HEENT: No JVD. CHEST: Few scattered rhonchi. HEART: PMI normal position. No pathological gallops noted. ABDOMEN: Soft, nontender with normoactive bowel sounds. EXTREMITIES: No edema. DIAGNOSTIC DATA: Potassium 4.4, BUN and creatinine 15 and 0.8. White count 8.4, hematocrit 12.5 and 38.6 with platelet count of 192,000 and PCK 1116. Morning electrocardiogram is pending. IMPRESSION: 1. Status post non-ST segment elevation myocardial fraction. An emergent percutaneous coronary intervention of saphenous vein graft to obtuse marginal branch. 2. Coronary disease status post prior bypass surgery. 3. Rest of problems as noted. RECOMMENDATIONS: The patient should continue on his current medications. He will be transferred to telemetry and began ambulation. As his blood pressure allows, his lisinopril will be resumed. Further recommendations will be made based upon his clinical course and results of the above intervention. A followup electrocardiogram and cardiac enzymes will be checked in the morning. Hopefully, discharge within 24-48 hours will be possible. We will continue to follow and make further recommendations as appropriate. Babak Flowers MD MTDD
[2018-07-09 17:22] VITALS: O2SAT 97
[2018-07-10 06:20] VITALS: TEMP 97.8
--- NOTE | 2018-07-10 08:13 | CARD ---
APPROVED REPORT Date of service: 07/09/2018 EKG Measurement Heart [id number] <Conclusion> Sinus bradycardia with premature supraventricular complexes ST-T abnormalities, consider anterolateral ischemia Abnormal ECG
--- NOTE | 2018-07-10 08:33 | CARD ---
APPROVED REPORT Date of service: 07/09/2018 EXAM: Two-dimensional and M-mode echocardiogram with Doppler and color Doppler. INDICATION PA 2D DIMENSIONS Left Atrium (2D)5.0 (1.6-4.0cm)IVSd1.5 (0.7-1.1cm) LVDd5.2 (3.9-5.9cm)PWd1.2 (0.7-1.1cm) LVDs4.2 (2.5-4.0cm)FS (%) 19.7 % LVEF (%)40.4 (>50%) M-Mode DIMENSIONS Aortic Root2.40 (2.2-3.7cm)Aortic Cusp Exc.1.90 (1.5-2.0cm) Aortic Valve AoV Peak Fyojxorp537.0cm/Nicole Peak GR.8mmHg Mitral Valve MV E Vncruiqh56.0cm/sMV A Odzdvopx29.3cm/sE/A ratio1.5 TDI E/Lateral E'0.0E/Medial E'0.0 Tricuspid Valve TR Peak [id number]/sRAP [id number] Peak Gr.9mmHg [id number] LEFT VENTRICLE The left ventricle is normal size. There is mild concentric left ventricular hypertrophy. Left ventricle systolic function is mildly impaired. There is moderate hypokinesis of the inferolateral wall. RIGHT VENTRICLE The right ventricle is normal size. The right ventricular systolic function is normal. ATRIA The left atrium is moderately dilated. The right atrium size is normal. The interatrial septum is intact with no evidence for an atrial septal defect. AORTIC VALVE The aortic valve is normal in structure. No aortic regurgitation is present. There is no aortic valvular stenosis. MITRAL VALVE The mitral valve is normal in structure. There is no mitral valve regurgitation noted. TRICUSPID VALVE The tricuspid valve is normal in structure. There is mild tricuspid regurgitation. PULMONIC VALVE The pulmonary valve is normal in structure. GREAT VESSELS The aortic root is normal in size. The IVC is normal in size and collapses >50% with inspiration. PERICARDIAL EFFUSION There is no pleural effusion. There is no pericardial effusion. <Conclusion> Technically limited study. LV systolic function apears mildly reduced with moderate inferolateral hypokinesis. Mild concentric LVH. Mild TR.
[2018-07-10] MEDS: Metoprolol Succinate 50 mg XL Tab PO SCH (10:16)
--- NOTE | 2018-07-10 10:26 | CP.PCM.DIS ---
Provider - Provider Date of Admission: 07/08/18 16:10 Attending physician: Davidson Morrison MD Consults: 07/08/18 22:37 Inpatient [employer]ET [employer]NAGEMENT [employer]AD Core Measures Referral Routine Comment: Physician Instructions: Reason For Exam: EVALUATION Transition In Care/Readmission Reduction Routine Comment: Physician Instructions: Reason For Exam: EVALUATION Time Spent in preparation of Discharge (in minutes): 45 Hospital Course - Lab Results Lab Results: Micro Results 07/08/18 16:55 Naris MRSA Culture (Admit) - Final MRSA NOT DETECTED Most Recent Lab Values WBC 8.4 10^3/uL (4.5-11.0) 07/09/18 05:40 RBC 4.06 10^6/uL (3.5-6.1) 07/09/18 05:40 Hgb 12.5 g/dL (14.0-18.0) L 07/09/18 05:40 Hct 38.6 % (42.0-52.0) L 07/09/18 05:40 MCV 95.1 fl (80.0-105.0) 07/09/18 05:40 MCH 30.8 pg (25.0-35.0) 07/09/18 05:40 MCHC 32.4 g/dl (31.0-37.0) 07/09/18 05:40 RDW 14.1 % (11.5-14.5) 07/09/18 05:40 Plt Count 192 10^3/uL (120.0-450.0) 07/09/18 05:40 MPV 10.3 fl (7.0-11.0) 07/09/18 05:40 Neut % (Auto) 70.6 % (50.0-68.0) H 07/09/18 05:40 Lymph % (Auto) 17.6 % (22.0-35.0) L 07/09/18 05:40 [place] % (Auto) 11.2 % (1.0-6.0) H 07/09/18 05:40 Eos % (Auto) 0.4 % (1.5-5.0) L 07/09/18 05:40 Baso % (Auto) 0.2 % (0.0-3.0) 07/09/18 05:40 Lymph # (Auto) 1.5 (1.2-3.4) 07/09/18 05:40 [place] # (Auto) 0.9 (0.1-0.6) H 07/09/18 05:40 Eos # (Auto) 0.0 (0.0-0.7) 07/09/18 05:40 Baso # (Auto) 0.02 K/mm3 (0.0-2.0) 07/09/18 05:40 Absolute Neuts (auto) 5.91 (1.4-6.5) 07/09/18 05:40 PT 12.0 SECONDS (9.4-12.5) 07/08/18 14:30 INR 1.08 07/08/18 14:30 APTT 32.3 Seconds (26.9-38.3) 07/08/18 14:30 Sodium 140 mmol/L (132-148) 07/09/18 05:40 Potassium 4.4 mmol/L (3.6-5.0) 07/09/18 05:40 Chloride 110 mmol/L (98-107) H 07/09/18 05:40 Carbon Dioxide 26 mmol/L (21-33) 07/09/18 05:40 Anion Gap 8 (10-20) L 07/09/18 05:40 BUN 15 mg/dL (7-21) 07/09/18 05:40 Creatinine 0.8 mg/dl (0.8-1.5) 07/09/18 05:40 Est GFR ( Amer) > 60 07/09/18 05:40 Est GFR (Non-Af Amer) > 60 07/09/18 05:40 Random Glucose 104 mg/dL (70-110) 07/09/18 05:40 Calcium 8.5 mg/dL (8.4-10.5) 07/09/18 05:40 Total Bilirubin 0.4 mg/dL (0.2-1.3) 07/08/18 14:30 AST 47 U/L (17-59) 07/08/18 14:30 ALT 40 U/L (7-56) 07/08/18 14:30 Alkaline Phosphatase 74 U/L (38-126) 07/08/18 14:30 Lactate Dehydrogenase 967 U/L (333-699) H 07/09/18 07:00 Total Creatine Kinase 835 U/L (35-230) H 07/09/18 07:00 CK-MB (CK-2) 65.2 ng/mL (0.0-3.6) H 07/09/18 07:00 CK-MB (CK-2) % 7.8 % (2.5-3.0) H 07/09/18 07:00 Troponin I 7.88 ng/mL H* D 07/09/18 19:00 Total Protein 7.6 g/dL (5.8-8.3) 07/08/18 14:30 Albumin 4.3 g/dL (3.0-4.8) 07/08/18 14:30 Globulin 3.3 gm/dL 07/08/18 14:30 Albumin/Globulin Ratio 1.3 (1.1-1.8) 07/08/18 14:30 Triglycerides 105 mg/dL (35-160) 07/09/18 07:00 Cholesterol 121 mg/dL (130-200) L 07/09/18 07:00 LDL Cholesterol Direct 74 mg/dL (0-129) 07/09/18 07:00 HDL Cholesterol 36 mg/dL (29-60) 07/09/18 07:00 Blood Type A POSITIVE 07/08/18 14:45 Antibody Screen Negative 07/08/18 14:45 BBK History Checked Patient has bt 07/08/18 14:45 - Hospital Course Hospital Course: 63-year-old male with past medical history of coronary artery disease status post CABG and stent placement, hypertension, hyperlipidemia, TIA presents with left-sided chest pain and dyspnea on exertion. In the ED basic lab work was performed. Troponins were elevated from 0.2->7->30. EKG showed normal sinus rhythm with age-indeterminate acute infarct in the inferior and possible posterior leads. Cardiology was consulted the patient for emergent cardiac catheterization. PCI was placed in saphenous vein graft to obtuse marginal. Echo showed ejection fraction of 40%. Patient started on aspirin, Plavix, metoprolol, and lisinopril. Today the patient states that he is feeling well and denies any shortness of breath or chest pain. Lifestyle modification including diet and exercise was again encouraged. Script for metoprolol 50 mg/day was given to the patient. Patient states that he has his aspirin, Plavix, and lisinopril at home. 1. ACS status post PCI placement with drug-eluting stent 2. Hypertension 3. Hyperlipidemia 4. TIA Discharge Exam - Head Exam Head Exam: ATRAUMATIC, NORMOCEPHALIC - Eye Exam Eye Exam: EOMI - Respiratory Exam Respiratory Exam: Clear to PA & Lateral. absent: Rales, Rhonchi, Wheezes - Cardiovascular Exam Cardiovascular Exam: REGULAR RHYTHM, +S1, +S2 - GI/Abdominal Exam GI & Abdominal Exam: Normal Bowel Sounds, Soft. absent: Tenderness - Neurological Exam Neurological exam: Alert, Oriented x3 - Psychiatric Exam Psychiatric exam: Normal Mood - Skin Skin Exam: Dry, Warm Discharge Plan - Discharge Medications Prescriptions: Metoprolol Succinate XL [Toprol XL] 50 mg PO DAILY #30 tab - Follow Up Plan Condition: STABLE Disposition: HOME/ ROUTINE Instructions: Myocardial Infarction (DC), Myocardial Infarction (GEN) Additional Instructions: If your symptoms recur come back to the ED Follow up with your PMD with in 3 days Follow up with your cardiology with in 1 week Take your medications as prescribed including asa, plavix, metoprolol and lis inopril Referrals: Babak Flowers MD [Staff Provider] -
--- NOTE | 2018-07-10 12:42 | PN ---
DATE: 07/10/2018 SUBJECTIVE: The patient is seen lying in bed in CCU. He is comfortable. He denies any chest pain. CURRENT MEDICATIONS: Include aspirin, Plavix, subcutaneous heparin, Lipitor 80 mg daily, metoprolol 50 mg daily. OBJECTIVE: GENERAL: He is a middle-age male who is comfortable at the present time. VITAL SIGNS: Blood pressure 128/70, pulse 50 and sinus, respirations 16. He is afebrile. NECK: No JVD. CHEST: Clear to auscultation and percussion. HEART: PMI in normal position. No apparent murmurs, rubs or gallops noted. ABDOMEN: Soft and nontender with normoactive bowel sounds. EXTREMITIES: No edema. LABORATORY DATA: Troponin is 7.88. DIAGNOSTICS DATA: Echocardiogram reveals mildly reduce LV systolic function with moderate inferior wall hypokinesis and mild concentric LVH, and mild tricuspid regurgitation. IMPRESSION: 1. Status post [id number] elevation myocardial infarction with emergent percutaneous intervention of obtuse marginal bypass graft. 2. Known coronary artery disease status post prior bypass surgery. 3. Respiratory problems as noted. RECOMMENDATIONS: From cardiac standpoint, he appears stable for discharge home today. Post myocardial infarction instructions were provided. He will be maintained out of work for the next two weeks. Office visit in one to two weeks will be planned. Aggressive risk factor control is recommended. Babak Flowers MD MTDD
--- NOTE | 2018-07-10 15:16 | CARD ---
APPROVED REPORT Date of service: 07/10/2018 EKG Measurement Heart [id number] <Conclusion> Sinus bradycardia ST & T wave abnormality, consider lateral ischemia Abnormal ECG
[2018-07-10 15:46] VITALS: BP 137/74; PULSE 49; RESP 31
== END 2018-07-10 16:09 | disposition home or self-care (01) | DRG 247 ==
LOC: ED 14:16 → CATH 15:27 → ERH 16:10 → CCU 16:32
PROVIDERS: ADMIT Internal Medicine Nephrology; ATTEND Internal Medicine Nephrology
PROC: 027034Z Dilation of Coronary Artery, One Artery with Drug-eluting Intraluminal Device, Percutaneous Approach (ICD-10-PCS; principal; 2018-07-08)
PROC: 4A023N7 Measurement of Cardiac Sampling and Pressure, Left Heart, Percutaneous Approach (ICD-10-PCS; 2018-07-08)
PROC: B2151ZZ Fluoroscopy of Left Heart using Low Osmolar Contrast (ICD-10-PCS; 2018-07-08)
PROC: B2121ZZ Fluoroscopy of Single Coronary Artery Bypass Graft using Low Osmolar Contrast (ICD-10-PCS; 2018-07-08)
PROC: B2111ZZ Fluoroscopy of Multiple Coronary Arteries using Low Osmolar Contrast (ICD-10-PCS; 2018-07-08)
DX: I21.4 Non-ST elevation (NSTEMI) myocardial infarction (principal); I25.10 Atherosclerotic heart disease of native coronary artery without angina pectoris; I10 Essential (primary) hypertension; N40.0 Benign prostatic hyperplasia without lower urinary tract symptoms; E78.5 Hyperlipidemia, unspecified; Z79.02 Long term (current) use of antithrombotics/antiplatelets; Z79.82 Long term (current) use of aspirin; Z87.891 Personal history of nicotine dependence; Z86.73 Personal history of transient ischemic attack (TIA), and cerebral infarction without residual deficits; Z95.1 Presence of aortocoronary bypass graft; I25.2 Old myocardial infarction; Z95.5 Presence of coronary angioplasty implant and graft